=== PATIENT | female | born 1940 | race Caucasian/White ===

== ENCOUNTER → 2019-02-26 | Outpatient (CLI) | payer MEDICARE, BC ==
[~2019-02-26] MED LIST: AMLO5 PO; ASPI81CH PO; Boniva150 MG PO; DIPYRIDAMOLE PO; HYDCHL12.5 PO; ISOMON20 PO; LETR2.5 PO; LISI20 PO; MELO7.5 PO; METF500 PO
== END ==
LOC: LAB SHORT 10:00 → LAB 10:00
DX: R30.0 Dysuria (principal)
CPT/HCPCS: 87077; 87086; 87186

== ENCOUNTER → 2020-12-10 | Outpatient (CLI) | payer MEDICARE | END | disposition home or self-care (01) | LOC: LAB SHORT 15:15 → LAB 15:15 | DX: R35.0 Frequency of micturition (principal) | CPT/HCPCS: 87086 ==

== ENCOUNTER → 2021-01-01 | Outpatient (CLI) | payer MEDICARE | END | disposition home or self-care (01) | LOC: LAB 11:10 → LAB SHORT 11:10 | DX: R30.0 Dysuria (principal) | CPT/HCPCS: 87086 ==

== ENCOUNTER → 2021-04-21 | Outpatient (CLI) | payer MEDICARE ==
[2021-04-21 11:09] LABS: BASOPHILS ABSOLUTE AUTO 0.08 K/mm3 (0.00-0.23); BASOPHILS PERCENT AUTO 1 % (0-2); EOSINOPHILS ABSOLUTE AUTO 0.19 K/mm3 (0.00-0.68); EOSINOPHILS PERCENT AUTO 3 % (0-6); Hematocrit 38.9 % (33.0-51.0); Hemoglobin 12.7 g/dL (11.5-16.0); IMMATURE GRAN ABSOLUTE AUTO 0.04 K/mm3 (0.00-0.10); IMMATURE GRAN PERCENT AUTO 1 % (0-1); LYMPHOCYTES ABSOLUTE AUTO 1.14 K/mm3 (0.84-5.20); LYMPHOCYTES PERCENT AUTO 19 % (21-46); MONOCYTES ABSOLUTE AUTO 0.71 K/mm3 (0.16-1.47); MONOCYTES PERCENT AUTO 12 % (4-13); Mean Corpuscular HGB 31.9 pg (26.0-34.0); Mean Corpuscular HGB Conc 32.6 g/dL (31.5-36.5); Mean Corpuscular Volume 98 fL (80-100); Mean Platelet Volume 9.6 fL (9.1-12.4); NEUTROPHILS PERCENT AUTO 64 % (41-73); Platelet Count 340 K/mm3 (150-400); RDW Coefficient Variation 12.5 % (11.7-14.2); Red Blood Cell Count 3.98 M/mm3 (3.80-5.20); White Blood Cell Count 6.06 K/mm3 (4.00-11.30)
[2021-04-21 11:33] LABS: Alanine Aminotransfer (ALT/SGP 10 U/L (12-78); Albumin, Blood 3.5 g/dL (3.4-5.0); Alk Phos 74 U/L (50-136); Anion Gap 6 mmol/L (6-16); Aspartate Aminotrans (AST/SGOT 21 U/L (12-37); Bilirubin, Total 0.4 mg/dL (0.1-1.0); Blood Urea Nitrogen 20 mg/dL (8-24); Bun/Creatinine Ratio 33.3 (12.0-20.0); CO2, Blood 29 mmol/L (21-32); Calcium, Blood 9.9 mg/dL (8.5-10.1); Chloride, Blood 104 mmol/L (98-108); Globulin, Blood 3.5 g/dL (2.2-4.0); Glomerular Filtration Rate >60 (60-); Glucose, Blood 101 mg/dL (70-99); Potassium, Blood 3.6 mmol/L (3.5-5.5); Sodium, Blood 139 mmol/L (136-145); Thyroid Stimulating Hormone 0.885 uIU/mL (0.360-4.800)
== END | disposition home or self-care (01) ==
LOC: LAB 10:36 → LAB SHORT 10:36
PROVIDERS: Physician Assistant
DX: R53.83 Other fatigue (principal)
CPT/HCPCS: 80053; 84443; 85025

== ENCOUNTER 2021-05-14 13:43 | Inpatient (IN) | payer MEDICARE, BC ==
[~2021-05-14] VITALS: Ht 157.5 cm; Wt 72.6 kg
[2021-05-14] MEDS ORDERED: CARBLEV25 PO (13:59)
[2021-05-14] MEDS ORDERED: CARBIDOPA PO (14:00)
[2021-05-14] MEDS ORDERED: LISI20 PO (14:00)
[2021-05-14] MEDS ORDERED: LETR2.5 PO (14:00)
[2021-05-14] MEDS ORDERED: LEVODOPA PO (14:00)
[2021-05-14] MEDS ORDERED: HYDCHL25 PO (14:01)
[2021-05-14] MEDS ORDERED: AMLO5 PO (14:01)
[2021-05-14] MEDS ORDERED: METF500 PO (14:01)
[2021-05-14] MEDS ORDERED: Isosorbide Mono30 MG PO (14:02)
[2021-05-14] MEDS ORDERED: GABA300 PO (14:02)
[2021-05-14 14:14] LABS: BASOPHILS ABSOLUTE AUTO 0.04 K/mm3 (0.00-0.23); BASOPHILS PERCENT AUTO 0 % (0-2); EOSINOPHILS ABSOLUTE AUTO 0.01 K/mm3 (0.00-0.68); EOSINOPHILS PERCENT AUTO 0 % (0-6); Hematocrit 34.4 % (33.0-51.0); Hemoglobin 11.9 g/dL (11.5-16.0); IMMATURE GRAN PERCENT AUTO 1 % (0-1); LYMPHOCYTES ABSOLUTE AUTO 1.03 K/mm3 (0.84-5.20); LYMPHOCYTES PERCENT AUTO 6 % (21-46); MONOCYTES ABSOLUTE AUTO 1.52 K/mm3 (0.16-1.47); MONOCYTES PERCENT AUTO 9 % (4-13); Mean Corpuscular HGB 32.2 pg (26.0-34.0); Mean Corpuscular HGB Conc 34.6 g/dL (31.5-36.5); Mean Corpuscular Volume 93 fL (80-100); Mean Platelet Volume 9.8 fL (9.1-12.4); NEUTROPHILS ABSOLUTE AUTO 14.29 K/mm3 (1.96-9.15); NEUTROPHILS PERCENT AUTO 84 % (41-73); Platelet Count 308 K/mm3 (150-400); RDW Coefficient Variation 12.3 % (11.7-14.2); RDW Standard Deviation 42.7 fL (35.1-46.3); White Blood Cell Count 16.99 K/mm3 (4.00-11.30)
[2021-05-14 14:45] LABS: Albumin, Blood 2.6 g/dL (3.4-5.0); Albumin/Globulin Ratio 0.9 (0.8-1.8); Bilirubin, Total 0.6 mg/dL (0.1-1.0); Bun/Creatinine Ratio 15.7 (12.0-20.0); Calcium, Blood 8.9 mg/dL (8.5-10.1); Creatinine, Blood 3.43 mg/dL (0.40-1.00); Globulin, Blood 2.9 g/dL (2.2-4.0); Potassium, Blood 3.2 mmol/L (3.5-5.5); Total Protein, Blood 5.5 g/dL (6.4-8.2)
[2021-05-14 15:53] LABS: Source, Urine Catheter
[2021-05-14 15:56] LABS: Appearance, Urine Clear (Clear); Bilirubin, Urine Neg (Neg); Blood, Urine 5+ (Neg); Color, Urine Yellow (P-Yellow); Glucose Qualitative, Urine Neg (Neg); Ketones, Urine 1+ (Neg); Leukocyte Esterase, Urine Neg (Neg); Nitrite, Urine Neg (Neg); Protein, Urine 3+ (Neg); Urobilinogen, Urine NORM (Normal)
[2021-05-14 15:58] LABS: Amorphous Mod (0-Heavy); Bacteria Few /hpf; Squamous Epithelial Cells Few /hpf (Few); White Blood Cells, Urine 0-2 /hpf (0-5)
[2021-05-14 17:55] LABS: Magnesium, Blood 1.7 mg/dL (1.6-2.4)
[2021-05-14 17:56] LABS: Phosphorus, Blood 4.4 mg/dL (2.5-4.9)
[2021-05-15 04:59] LABS: BASOPHILS ABSOLUTE AUTO 0.05 K/mm3 (0.00-0.23); BASOPHILS PERCENT AUTO 0 % (0-2); EOSINOPHILS PERCENT AUTO 1 % (0-6); Hematocrit 31.8 % (33.0-51.0); Hemoglobin 10.6 g/dL (11.5-16.0); IMMATURE GRAN ABSOLUTE AUTO 0.08 K/mm3 (0.00-0.10); IMMATURE GRAN PERCENT AUTO 1 % (0-1); LYMPHOCYTES ABSOLUTE AUTO 0.86 K/mm3 (0.84-5.20); LYMPHOCYTES PERCENT AUTO 8 % (21-46); MONOCYTES ABSOLUTE AUTO 1.21 K/mm3 (0.16-1.47); MONOCYTES PERCENT AUTO 11 % (4-13); Mean Corpuscular HGB 32.1 pg (26.0-34.0); Mean Corpuscular HGB Conc 33.3 g/dL (31.5-36.5); Mean Corpuscular Volume 96 fL (80-100); NEUTROPHILS ABSOLUTE AUTO 9.14 K/mm3 (1.96-9.15); NEUTROPHILS PERCENT AUTO 80 % (41-73); Platelet Count 257 K/mm3 (150-400); RDW Coefficient Variation 12.4 % (11.7-14.2); RDW Standard Deviation 43.7 fL (35.1-46.3); White Blood Cell Count 11.44 K/mm3 (4.00-11.30)
[2021-05-15 05:53] LABS: Albumin, Blood 2.1 g/dL (3.4-5.0); Anion Gap 11 mmol/L (6-16); Blood Urea Nitrogen 50 mg/dL (8-24); Bun/Creatinine Ratio 20.3 (12.0-20.0); CO2, Blood 23 mmol/L (21-32); Calcium, Blood 8.5 mg/dL (8.5-10.1); Chloride, Blood 103 mmol/L (98-108); Creatinine, Blood 2.46 mg/dL (0.40-1.00); Glomerular Filtration Rate 19 (60-); Glucose, Blood 86 mg/dL (70-99); Magnesium, Blood 1.4 mg/dL (1.6-2.4); Phosphorus, Blood 3.8 mg/dL (2.5-4.9); Potassium, Blood 3.8 mmol/L (3.5-5.5); Sodium, Blood 137 mmol/L (136-145)
[2021-05-15 06:01] LABS: CPK Creatine Kinase 2171 U/L (26-193)
[2021-05-15] MEDS ORDERED: GABA300 PO (07:27)
[2021-05-15] MEDS ORDERED: Ocuvite Preser1 EACH PO (07:37)
--- NOTE | 2021-05-15 17:59 | NUR ---
SHIFT SUMMARY PATIENT AOX2/3 FORGETFULL; ADMITTED WITH FALL AND PARRISH; IVF INFUSING AT 150CC/HR. PATIENT UP WITH ONE ASSIST AND GAIT BELT TO BR. PT/OT WORKED WITH PATIENT, CARPENTER MINE INVOLVED IN PLAN FOR SNF WHEN MEDICALLY STABLE. SKIN DRESSINGS TO BUTTOCKS AND HEELS INTACT. VSS; WILL CONTINUE WITH PLAN OF CARE
[2021-05-16 04:20] LABS: Hematocrit 29.3 % (33.0-51.0); Hemoglobin 10.1 g/dL (11.5-16.0); Mean Corpuscular HGB 32.2 pg (26.0-34.0); Mean Corpuscular HGB Conc 34.5 g/dL (31.5-36.5); Mean Corpuscular Volume 93 fL (80-100); Mean Platelet Volume 9.9 fL (9.1-12.4); Platelet Count 258 K/mm3 (150-400); RDW Coefficient Variation 12.2 % (11.7-14.2); RDW Standard Deviation 41.4 fL (35.1-46.3); Red Blood Cell Count 3.14 M/mm3 (3.80-5.20)
[2021-05-16 05:05] LABS: Magnesium, Blood 1.5 mg/dL (1.6-2.4); Thyroid Stimulating Hormone 0.816 uIU/mL (0.360-4.800)
[2021-05-16 05:06] LABS: Albumin, Blood 2.2 g/dL (3.4-5.0); Albumin/Globulin Ratio 0.8 (0.8-1.8); Bilirubin, Total 0.5 mg/dL (0.1-1.0); Bun/Creatinine Ratio 32.5 (12.0-20.0); Calcium, Blood 8.5 mg/dL (8.5-10.1); Creatinine, Blood 0.96 mg/dL (0.40-1.00); Globulin, Blood 2.6 g/dL (2.2-4.0); Percent Saturation 11.2 % (15.0-50.0); Potassium, Blood 3.3 mmol/L (3.5-5.5); Total Protein, Blood 4.8 g/dL (6.4-8.2)
--- NOTE | 2021-05-16 07:10 | NUR ---
SHIFT SUMMARY Pt A/Ox3-4 with times of confusion. VSS over night. Pt incontinent of urine multiple times overnight in brief. Q2 turns. 0.9 infused over night per order.
--- NOTE | 2021-05-16 11:21 | NUR ---
PT. STRONGLY REFUSED CHECKING CBG, TRYING TO HIT & HIDING BOTH HANDS, PRIMARY RN NOTIFIED.
--- NOTE | 2021-05-16 13:14 | NUR ---
SHIFT SUMMARY PATIENT INCREASINGLY BECOMING MORE CONFUSED ON SHIFT. PATIENT STATING SHE FEELS IMPRISIONED AND THE STAFF IS HERE TO HARM HER. PATIENT SWINGING HER ARMS AT STAFF WHEN ATTEMPTING TO HELP GET OOB IN AM. PATIENT PULLED OUT IV. NEW IV PLACED.
--- NOTE | 2021-05-16 16:34 | NUR ---
PT. REFUSED CBG CHECK & SAID " NO' MY BLOOD SUGAR IS NORMAL".
--- NOTE | 2021-05-16 17:14 | NUR ---
ON SOFT WRIST RESTRAINT PER MD ORDER RELATED TO UNCOOPERATIVE WITH CARE, UNSAFE FOR HERSELF & OTHERS PT. HIT STAFF MEMBERS & TRIED TO BITE AT TIMES.
--- NOTE | 2021-05-16 18:36 | NUR ---
DAY SHIFT SUMMARY/TRANSFERED FROM SURGICAL UNIT PT ARRIVED TO FLOOR A TRANSFER FROM THE SURGICAL UNIT. AGITATED AND IN WRIST RESTRAINTS. PT PULLING AGAINST RESTRAINTS, YELLING AT PEOPLE SHE PASSES IN HALLWAY ON THE WAY TO ROOM TO CALL POLICE SHE IS BEING HELD AGAINST HER WILL. 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 PT CONTINUES TO YELL OUT ROOM DOOR FOR HELP AND THREATENS STAFF WITH CALLING POLICE AND PRESSING CHARGES FOR KEEPING HER HERE TONIGHT. ASSESSMENT OF WRIST AND SKIN BENEATH RESTRAINTS. HX OF FALLS, IV PATENT, MEPILEX PLACED TO SACRAL AREA WITH REDNESS AND EXCORIATION/OPEN BLISTERS PRESENT, MEPILEX TO HEALS BLE. PT EDUCATED [employer] DEAN LIGHT AND CALL LIGHT IS IN REACH OF PT.
--- NOTE | 2021-05-17 01:06 | NUR ---
PT HAS A LOW GRADE FEVER BUT REFUSES PO MEDS AT THE MOMENT AND THIS NURSE WILL CONTINUE TO MONITOR. PT STILL AGITATED AND ATTEMPTING TO PICK AT RESTRAINTS AND IV.
--- NOTE | 2021-05-17 05:38 | NUR ---
SHIFT SUMMARY PT. AOX1 AND WAS AGITATED WHILE YELLING OUT DELUSIONAL STATEMENTS MOST OF THIS SHIFT. PT WAS CALM AFTER PRN PER EMAR AT THE BEGINING OF THIS SHIFT AND WAS ABLE TO TRUST PO MEDS PER EMAR. PT. SHORTLY AFTER BEGAIN TO ACCUSE STAFF OF TRYING TO POISON THEM AGAIN SPITTING OUT WATER. PT. DISORIENTED AND WAS FINALLY ABLE TO REST BRIEFLY WITHOUT PULLING ON RESTRAINTS. PT. CLEAN AND DRY IN BED YELLING OUT. THIS NURSE WILL CONTINUE TO MONITOR UNTIL REPORT IS GIVEN.
[2021-05-17 05:59] LABS: Hematocrit 35.1 % (33.0-51.0); Mean Corpuscular HGB 31.7 pg (26.0-34.0); Mean Corpuscular HGB Conc 34.2 g/dL (31.5-36.5); Mean Corpuscular Volume 93 fL (80-100); Mean Platelet Volume 10.5 fL (9.1-12.4); Platelet Count 353 K/mm3 (150-400); RDW Coefficient Variation 12.1 % (11.7-14.2); RDW Standard Deviation 41.1 fL (35.1-46.3); Red Blood Cell Count 3.79 M/mm3 (3.80-5.20); White Blood Cell Count 11.91 K/mm3 (4.00-11.30)
[2021-05-17 07:33] LABS: Anion Gap 16 mmol/L (6-16); Blood Urea Nitrogen 13 mg/dL (8-24); CO2, Blood 22 mmol/L (21-32); Calcium, Blood 9.2 mg/dL (8.5-10.1); Chloride, Blood 101 mmol/L (98-108); Creatinine, Blood 0.59 mg/dL (0.40-1.00); Glomerular Filtration Rate >60 (60-); Glucose, Blood 95 mg/dL (70-99); Potassium, Blood 3.1 mmol/L (3.5-5.5); Sodium, Blood 139 mmol/L (136-145)
--- NOTE | 2021-05-17 17:56 | NUR ---
Shift Summary A/Ox3, intermittent confusion and forgetfulness. Can easily get agitated; however, has been appropriate and even pleasant with staff today. Worked with PT/OT. Medicated x 1 for 8/10 bilat feet pain r/t neuropathy, effect was good. Daughter Venessa is concerned with discharge disposition to SNF and feels this will only increase agitation 10 fold. Venessa would prefer patient d/c to home with HH. Phone number and concern passed onto JEWEL Garcia and Edilia. During assessment, patient found to have decubitis to coccyx and excoriated buttocks. Photos taken and placed in chart. Wound care documentation completed. Wound cleansed and dressed.
--- NOTE | 2021-05-18 05:49 | NUR ---
SHIFT SUMMARY ASSUMED CARE AT 1900. PT REMAINS CONFUSED WITH LABILE MOOD. FREQUENTLY AGITATED AMD COMBATIVE MEDICATED PER EMAR FOR THIS ONCE DURING SHIFT THUS FAR. RESTRAINTS WERE DISCONTINUED DURING PREVIOUS SHIFT AND DOES NOT APPEAR TO NEED THEM; OFTEN RESISTING REPOSITIONING/TURNING. MEPILEX TO COCCYX REMAINS IN PLACE, CLEAN DRY AND INTACT. BED ALRAM REMAINS ACTIVATED- PT OCCASIONALLY TRIES TO GET OUT OF BED, POOR INSIGHT REGARDING HER LIMITATIONS. BED IN LOW POSITIONS WITH THE CALL LIGHT WITHIN EASY REACH. PT DOES USE CALL LIGHT TO SUMMON ASSISTANCE. WILL CONTINUE TO MONITOR AND REPOSITION Q2H PT ALLOWS.
[2021-05-18 06:10] LABS: Albumin, Blood 2.4 g/dL (3.4-5.0); Anion Gap 10 mmol/L (6-16); Blood Urea Nitrogen 18 mg/dL (8-24); Bun/Creatinine Ratio 25.2 (12.0-20.0); CO2, Blood 26 mmol/L (21-32); Chloride, Blood 102 mmol/L (98-108); Creatinine, Blood 0.71 mg/dL (0.40-1.00); Glomerular Filtration Rate >60 (60-); Glucose, Blood 96 mg/dL (70-99); Phosphorus, Blood 2.3 mg/dL (2.5-4.9); Potassium, Blood 3.2 mmol/L (3.5-5.5); Sodium, Blood 138 mmol/L (136-145)
--- NOTE | 2021-05-18 17:38 | NUR ---
SHIFT SUMMARY: CONFUSED, NOT COMBATIVE THIS SHIFT. NO RESTRAINTS IN USE. WHILE PT'S MENTATION WAXED AND WANED THROUGHOUT THE DAY, SHE BECAME SURLY AND SULLEN THIS EVENING AFTER HER DAUGHTER AND GRANDDAUGHTER VISITED; SHE THOUGHT THEY WERE TAKING HER HOME AND WAS VERY DISAPPOINTED WHEN THEY LEFT WITHOUT HER. INCONTINENT OF BOWEL AND BLADDER, ALTHOUGH SHE DENIED THIS. PT/OT WORKED WITH HER TODAY; SHE WAS A MAX TWO PERSON ASSIST TO GET FROM BSC TO BED. REFUSED SKIN ASSESSMENT AND DRESSING CHANGE ON COCCYX. GAVE TYLENOL ONCE FOR BACK PAIN WITH RELIEF. POTASSIUM AND PHOS REPLACED. APPETITE IS POOR.
--- NOTE | 2021-05-19 05:37 | NUR ---
SHIFT SUMMARY ASSUMED CARE AT 1900. PT REMAINS AAOX1-2, TO PERSON AND PLACE. PT KNOWS THAT SHE IS IN A HOSPITAL BUT BELIEVES THAT SHE IS STILL IN [place]. PT IS CONFUSED AND GET FRUSTRATED WHEN THERE ARE ATTEMPTS TO RE-DIRECTS AND RE-ORIENT. PT WITH LABILE MOOD AND GETS COMBATIVE. MEDICATED PRN PER EMAR. SCHEDULED MEDICATIONS WERE ADMINISTERED WITHOUT INCIDENT. PT WAS INCONTINENT DURING SHIFT AND ATTENDS IN PLACE. PT CONSTANTLY REFUSED REPOSITIONING AND TURNING DESPITE ENCOURAGEMENT AND TEACHING. BED ALARM REMAINS ACTIVATED AND BED IS IN LOW POSITION WITH THE CALL LIGHT WITHIN EASY REACH. WILL CONTINUE TO MONITOR.
[2021-05-19 05:45] LABS: Albumin, Blood 2.2 g/dL (3.4-5.0); Anion Gap 10 mmol/L (6-16); Blood Urea Nitrogen 16 mg/dL (8-24); Bun/Creatinine Ratio 25.4 (12.0-20.0); CO2, Blood 27 mmol/L (21-32); Calcium, Blood 8.9 mg/dL (8.5-10.1); Chloride, Blood 101 mmol/L (98-108); Creatinine, Blood 0.63 mg/dL (0.40-1.00); Glomerular Filtration Rate >60 (60-); Glucose, Blood 99 mg/dL (70-99); Phosphorus, Blood 3.5 mg/dL (2.5-4.9); Potassium, Blood 3.4 mmol/L (3.5-5.5); Sodium, Blood 138 mmol/L (136-145)
--- NOTE | 2021-05-19 18:35 | NUR ---
SHIFT SUMMARY PT RESTING QUIETLY AT START OF SHIFT. WOKE EASILY FOR CARE. INCONTINENT OF BLADDER; CLEANED AND CHANGED. DRSG TO COCCYX CHANGED WELL. PT REPOSITIONED FOR BREAKFAST. SOME CONFUSION AND DEMENTIA REPORTED AND NOTED. PT UP TO CHAIR AFTER BREAKFAST WITH P/T. PT REMAINED IN CHAIR AT BS UNTIL AFTER LUNCH AND THEN ASSISTED BACK INTO BED BY O/T. DR CASTRO IN TO SEE PT THIS AM, ATTEMPTED TO EDU PT ON PLAN OF CARE AND PROCESS. PT'S DAUGHTER IN TO VISIT THIS AFTERNOON. DAUGHTER BROUGHT IN POA PAPERS AND ASSISTED PT IN FILLING OUT POLST. PT AND DAUGHTER REQUESTED PT TO BE DNR. DR CASTRO NOTIFIED. PT SEEMED TO DO BETTER SINCE DAUGHTER CAME IN TO VISIT. REQUESTED BED [place] RECENTLY AND ABLE TO USE. REMAINED CONTINENT SINCE THIS AM. 1+ EDEMA TO BLE'S; ELEVATED IN BED. MEDICATED FOR C/O L HIP PAIN X2 THIS SHIFT. SITTING UP EATING DINNER AT THIS TIME. DENIES FURTHER NEEDS. BED ALARM ON FOR SAFETY. CALL LT IN REACH.
[2021-05-20 05:48] LABS: Albumin, Blood 2.3 g/dL (3.4-5.0); Anion Gap 12 mmol/L (6-16); Blood Urea Nitrogen 24 mg/dL (8-24); CO2, Blood 24 mmol/L (21-32); Calcium, Blood 9.5 mg/dL (8.5-10.1); Chloride, Blood 100 mmol/L (98-108); Creatinine, Blood 0.86 mg/dL (0.40-1.00); Glomerular Filtration Rate >60 (60-); Glucose, Blood 85 mg/dL (70-99); Phosphorus, Blood 3.1 mg/dL (2.5-4.9); Potassium, Blood 4.1 mmol/L (3.5-5.5); Sodium, Blood 136 mmol/L (136-145)
--- NOTE | 2021-05-20 05:52 | NUR ---
SHIFT SUMMARY ASSUMED CARE AT 1900. PT MENTATION WAXES AND WANES DURING THE SHIFT. PT MORE CONFUSED THIS MORNING BUT NOT COMBATIVE. PURPLE DNR BRACELET ON LEFT WRIST. IV SITE BENIGN. DRESSING TO COCCYX INTACT. NO COMPLAINTS OF PAIN DURING THE SHIFT. BP AT 0429 WAS RECORDED 190/70, WHEN RECHECKED AT 0457, BP WAS 162/82. PT ASYMPTOMATIC. PT REPOSITIOND/TURNED Q2H, PT MUCH MORE AGREEABLE WITH THIS COMPARED TO PREVIOUS SHIFTS. BED ALARM REMAINS ACTIVATED, BED IN LOW POSITION WITH THE CALL LIGHT WITHIN EASY REACH. WILL CONTINUE TO MONITOR.
--- NOTE | 2021-05-20 17:43 | NUR ---
ALERT TO SELF. UNLABORED RESPIRATIONS. COOPERATIVE. PER DAUGHTER PATIENT TO GO TO [place] POSSIBLY NEXT WEEK WITH PATIENT TALKING ABOUT GOING HOME. INCONTINENT/CONTINENT OF URINE. POOR APPETITE. WANTS TO WALK IN HALLWAY, BUT IS MAX 2 PERSON ASSIST JUST FROM BSC TO BED. BUTTOCK CLEANED AND CALAZINE AND ALOE COMBINATION PLACED. WCTM
--- NOTE | 2021-05-21 05:45 | NUR ---
SHIFT SUMMARY ASSUMED CARE AT 1900. PT CONFUSED. OCCASIONALLY AGITATED AND FRUSTRATED. TURNED/REPOSITIONED DURING SHIFT WHEN SHE WOULD ALLOW. NO COMPLAINTS OF PAIN VOICED. PT INCONTINENT. BED ALARM REMAINS ACTIVATED. BED IS IN LOW POSITION WITH THE CALL LIGHT WITHIN EASY REACH. WILL CONTINUE TO MONITOR.
--- NOTE | 2021-05-21 10:45 | NUR ---
COMBINATION CREAM OF ALOE AND CALAZINE APPLIED AFTER CLEANING BUTTOCK AREA. HIPS FLOATED.
--- NOTE | 2021-05-21 16:04 | NUR ---
ALERT TO SELF. SLEEPING MOST OF SHIFT. ALOE AND CALAZINE MIXTURE APPLIED TO BUTTOCK AFTER EACH URINATION. COOPERATIVE MOST OF THE TIME. REDIRECTABLE. AWAITING PLACEMENT TO [place]. UNLABORED RESPIRATIONS. WCTM
--- NOTE | 2021-05-21 20:40 | NUR ---
PT SATURATED W/URINE, ATTENDS CHANGED AND CALAZIME + ALOE CREAMS APPLIED TO COCCYX/MAGALYS AREA. SKIN IS EXCORIATED AND RED W/SBD OBSERVED AND CENTER OF WOUND NOTED TO BE LANDRUM TINGED. PLAN FOR TURN SCHEDULE AND FREQ ATTENDS CHECKS.
--- NOTE | 2021-05-21 21:28 | NUR ---
DRILL HAND ALERTED RN OF VITALS OUTSIDE NORMAL RANGE AND MADE AWARE: BP 167/73, TEMP 102.5, HR 102, RR 22 AND SPO2 93% ON RA. PT WAS VERY AGGITATED AND RESTLESS AT THE TIME. SHE WAS VERY CONFUSED W/NONSENSICAL CONVERSATION AND HAVING DIFFICULTY REDIRECTING. SHE MADE SEVERAL ATTEMPTS OOB BY SELF. BLANKETS WERE REMOVED AND MD ALERTED TO SITUATION. SHE INSTRUCTED TO GIVE THE RX'D PRN IM ZYPREXA AND PO TYLENOL IF PT IS COMPLIANT. ZYPREXA WAS ADMINISTERED BY PLAYGROUND AIDE (JANI HAMILTON), AWAITING EFFECT. PLAN TO GIVE TYLENOL ONCE PT CALMS FURTHER OR WILL OBTAIN LA TYLENOL RX IF NEEDED.
--- NOTE | 2021-05-21 22:35 | NUR ---
TEMP REMAINS SLIGHTLY ELEVATED, NOW 100.8. TYLENOL RECIEVED PO PRN AND PT TOLERATED PILLS W/O DISTRESS. SHE'S MUCH CALMER AND RESTING QUIETLY W/BED ALARM IN PLACE. TURN SCHEDULE BEING MAINTAINED.
--- NOTE | 2021-05-22 06:25 | NUR ---
SUMMARY: PT A/O TO SELF BUT MENTATION IS VARIABLE. AT HS SHE BECAME MORE CONFUSED, AGGITATED, NONSENSICAL AND REQUIRED IM ZYPREXA PRN TO AID IN CALMING HER. THIS MORNING SHE SEEMS MUCH CLEARER AND WAS ABLE TO SPECIFY NEEDS AND PROVIDE SOME DETAILS RE: HER PERSONAL HISTORY, FAMILY AND CAREER. SHE DOESN'T SEEM TO KNOW CAUSE OF DECUB ULCERS TO COCCYX BUT ADMITS SHE "HASN'T BEEN ABLE TO WALK FOR AWHILE". PT WAS INCONTINENT T/O NOCTE W/ATTENDS AND LINEN CHANGED FOR SATURATION W/URINE. CALAZIME + ALOE CREAM APPLIED TO COCCYZ AND MAGALYS AREA. SEE PREVIOUS NOTE FOR DETAILS ON WOUND APPEARANCE. TURN SCHEDULE MAINTAINED AND PILLOWS PLACED TO EXT'S FOR FURTHER SBD PREVENTION. VS WERE ELEVATED AT START OF SHIFT BUT PT WAS VERY ANXIOUS AND CONFUSED AT THAT TIME. THEY IMPROVED AFTER RECIEVING ZYPREXA AND TYLENOL FOR TMAX 102. NO ACUTE CHANGES, VSS/AFEBRILE THIS AM. WOUND CLINIC NEEDS CONSULTED TODAY PER ORDERS, WILL ENSURE DAY STAFF ARE AWARE. PLACEMENT PENDING. ANGELA AND REPORT TO DAY RN.
--- NOTE | 2021-05-22 08:23 | NUR ---
pt sleeping, but wakes easily, states she isn't doing very well, is trying to sleep, confused, but tries to follow commands, lungs are clear, dim in bases, resp even and unlabored, no cough noted, hrr, trace edema noted to b/l le, ppp+2, cap refill <3sec, vs stable, afebrile, iv to rfa site is clear and patent, s.l. btx4, abd flat soft nontender, incont of urine and stool, but will use the bedpan at times, bottom and ayaan area are red, turn q2hr, maew, weak, call light in reach.
--- NOTE | 2021-05-22 18:05 | NUR ---
pt has been calm today, just asking about what to expect next. daughter was in to see her. no acute changes this shift. call light in reach.
--- NOTE | 2021-05-23 03:50 | NUR ---
80 year old Female with Parkinsons PARRISH, & sacral coccyx dcub & buttocks maceration has mod amt purulent drainage fever low grade. Photo from 05/17/21 shows pressure ulcer. Oders obtained to photodoc & wound care. Deep wound culture. Will obtain new photos & DEEP WOUND CULTURES. Pt says she is psychol. & that she needs to complete interviews. zyprexa 10 mg given at HS with helpful effect. Poor historian, unable to ambulate despite 2-3 max assist. Appetite poor medicated for nausea x 1 , 1 sm emisis
[2021-05-23 10:19] LABS: Hematocrit 32.4 % (33.0-51.0); Hemoglobin 11.1 g/dL (11.5-16.0); Mean Corpuscular HGB 32.3 pg (26.0-34.0); Mean Corpuscular HGB Conc 34.3 g/dL (31.5-36.5); Mean Corpuscular Volume 94 fL (80-100); Mean Platelet Volume 9.7 fL (9.1-12.4); Platelet Count 366 K/mm3 (150-400); RDW Standard Deviation 41.5 fL (35.1-46.3); Red Blood Cell Count 3.44 M/mm3 (3.80-5.20); White Blood Cell Count 23.23 K/mm3 (4.00-11.30)
[2021-05-23 11:08] LABS: Anion Gap 12 mmol/L (6-16); Blood Urea Nitrogen 15 mg/dL (8-24); Bun/Creatinine Ratio 23.7 (12.0-20.0); CO2, Blood 23 mmol/L (21-32); Calcium, Blood 9.1 mg/dL (8.5-10.1); Chloride, Blood 94 mmol/L (98-108); Creatinine, Blood 0.63 mg/dL (0.40-1.00); Glomerular Filtration Rate >60 (60-); Glucose, Blood 117 mg/dL (70-99); Potassium, Blood 4.4 mmol/L (3.5-5.5); Sodium, Blood 129 mmol/L (136-145)
--- NOTE | 2021-05-23 15:54 | NUR ---
CALLED DR CASTRO 1000, NOTIFIED OF FOUL SMELLING EXUDATE FROM SACRAL WOUND, FEVER. ORDRE FOR CBC AND LATER ABX STARTED. SENT WOULD CX LAST NIGHT. ALSO PUT IN ORDER FOR SG CONSULT TO [facility] AND GERARDO MCRAE
--- NOTE | 2021-05-23 15:55 | NUR ---
CALLED DR CASTRO, NOTIFIED OF LOW BP AND ELEVATED TEMP
[2021-05-23 16:57] LABS: Source, Urine Catheter
[2021-05-23 17:02] LABS: Appearance, Urine Cloudy (Clear); Bilirubin, Urine Neg (Neg); Blood, Urine 4+ (Neg); Color, Urine Yellow (P-Yellow); Glucose Qualitative, Urine Neg (Neg); Ketones, Urine Neg (Neg); Leukocyte Esterase, Urine 3+ (Neg); Nitrite, Urine Neg (Neg); Protein, Urine 3+ (Neg); Specific Gravity, Urine 1.015 (1.003-1.022); Urobilinogen, Urine NORM (Normal)
[2021-05-23 17:11] LABS: Amorphous Heavy (0-Heavy); Bacteria Many /hpf; Red Blood Cells, Urine 25-50 /hpf (0-2); Squamous Epithelial Cells Few /hpf (Few)
[2021-05-23 17:51] LABS: Influenza A, PCR NEGATIVE (NEGATIVE); Influenza B, PCR NEGATIVE (NEGATIVE); Resp Syncytial Virus, PCR NEGATIVE (NEGATIVE); SARS-Cov-2 (COVID-19) PCR, MMC NEGATIVE (NEGATIVE)
--- NOTE | 2021-05-23 18:49 | NUR ---
SUMMARY- PT CONFUSED, DEPENCANT IN CARE. HAD BEEN INCONT B&B ALL DAY, SATURATING DEPENDS. ORDER FOR GRIFFITHS TO PROTECTION OF FURTHER SKIN BREAKDOWN. DR DEWITT CAME BY AND VISUALIZED WOUND. PLAN FOR SURGERY TOMORROW, NPO AFTER MN. STARTED LR AT 100ML/HR. TRAMADOL FOR PAIN WITH ADQ RELEIF UNLESS CHANGING POSITION, THAN PAIN IS SEVERE IN SACRAL AREA. PT TOLERATING FLUIDS, BUT HAS REFUSED MOST SOLID FOODS. STARTED BOWEL CARE WITH MIRILAX THIS AM, LAST BM 05/17 BUT PT HAS HAD MIN PO INTAKE. WILL REPORT TO FORREST COOLEY.
--- NOTE | 2021-05-23 19:29 | NUR ---
SPOKE WITH DAUGHTER JHONY, STATES PT HAD BEEN INDEPENDANT WITH MEDS AND COOKING UNTIL PAST MONTH. STATES MOM STARTED NEEDING MORE HELP. PT WAS FOUND FALLEN AT HOME ON FLOOR AND THATS WHEN DAUGHTER NOTICED PT HAD A BLISTER ON BOTTOM. (2 FRIDAYS AGO). THAN THAT SATURDAY HAD 3 LG BLISTERS TO COCCYS/SACRAL AREA. HADN'T REALIZED HER MOM HAD BREAKDOWN ON BOTTOM UNTIL THIS TIME. EXPLAINED THAT DAMAGE TO TISSUE DOESN'T SHOW UP UNTIL LATER AND HAS DEVELOPED INTO A UNSTAGABLE DECUBITUS REQUIRING INCISION AND DRAINAGE. DR DEWITT VISUALIZED WOUND AND PLANS TO PERRORM PROCEDURE IS FAMILY IS IN AGREEMENT.
--- NOTE | 2021-05-24 13:04 | NUR ---
tHE PATIENT WAS BROUGHT TO dAY SURGERY FOR HER PROCEDURE.THE PATIENT WAS IN PAIN.
--- NOTE | 2021-05-24 14:13 | NUR ---
05/24/21 1413 Raghavendra Ferrer PATIENT SCHEDULED ANTIBIOTICS, PATIENT ARRIVED TO OR WITH GRIFFITHS CATH IN PLACE DRAINING DARK YELLOW PURULENT URINE
--- NOTE | 2021-05-24 18:48 | NUR ---
1300- PT TAKEN TO PRESG VIA STRETCHER WITH LR AND VANCO INFUSING. BLOOD SUGAR 98, EKG PERFORMED. GRIFFITHS IN PLACE. DAUGHTER AWARE PT PRESG AND WILL MEET ANASTNGOZI TO GIVE CONCENT. ALREADY CONSENTED WITH DR DEWITT.
--- NOTE | 2021-05-24 18:51 | NUR ---
1545 PT RETURNED FROM PACU, OPENS EYES TO VERBAL, STATES " I CAN'T FEEL ANYTHING". DENIES ANY PAIN. MOVES ALL EXT TO COMMAND. VSS, CALLED DR HEARD FOR PAIN AND ANTIEMETIC ORDERS, STATES TO HOLD IVF FOR NOW. ORDERING BLOOD CX AND ECHO SHE HEARD A BRUIT.
--- NOTE | 2021-05-24 18:52 | NUR ---
SUMMARY- PT ALERT TO SELF. HAD I&D OF [facility] DECUB WITH DR DEWITT TODAY. WOUND VAC PLACED. TO CONT SUCTION, DRAINING SM AMOUNT SEROSANG. PT WOKE UP AND WAS IN SEVERE PAIN. AND NAUSEA, MEDICATED WITH FENT AND ZOFRAN. DR HEARD AWARE OF FINE CX IN BASES OF LUNG AND SHE HEARD A HEART MURMUR. ORDERED ECHO AND BLOOD CX. HOLDING IVF. GRIFFITHS PATENT DRAINING CLEAR WITH SEDIMENT. DAUGHTER AT BEDSIDE FOR A SHORT TIME POST OP AND GOING HOME FOR THE WILFREDO. VSS, WILL CONT TO JULISA. TOLERATING SIPS OF CLEARS AND A FEW BITES OF JELLO AND ICE. NAPPING ON/OFF. EMOTIONAL AND COMPLAINS ALOT WHILE AWAKE, ABOUT FEELING HOT AND PRESURE IN LEGS FROM SCD'S. WILL REPORT TO FORREST COOLEY.
[2021-05-25 04:53] LABS: BASOPHILS ABSOLUTE AUTO 0.05 K/mm3 (0.00-0.23); BASOPHILS PERCENT AUTO 0 % (0-2); EOSINOPHILS PERCENT AUTO 0 % (0-6); Hemoglobin 9.6 g/dL (11.5-16.0); IMMATURE GRAN ABSOLUTE AUTO 0.36 K/mm3 (0.00-0.10); IMMATURE GRAN PERCENT AUTO 2 % (0-1); LYMPHOCYTES ABSOLUTE AUTO 0.25 K/mm3 (0.84-5.20); LYMPHOCYTES PERCENT AUTO 1 % (21-46); MONOCYTES ABSOLUTE AUTO 0.47 K/mm3 (0.16-1.47); MONOCYTES PERCENT AUTO 2 % (4-13); Mean Corpuscular HGB 31.7 pg (26.0-34.0); Mean Corpuscular HGB Conc 33.1 g/dL (31.5-36.5); Mean Corpuscular Volume 96 fL (80-100); Mean Platelet Volume 9.8 fL (9.1-12.4); NEUTROPHILS ABSOLUTE AUTO 22.67 K/mm3 (1.96-9.15); NEUTROPHILS PERCENT AUTO 95 % (41-73); Platelet Count 363 K/mm3 (150-400); RDW Coefficient Variation 12.4 % (11.7-14.2); RDW Standard Deviation 43.7 fL (35.1-46.3); Red Blood Cell Count 3.03 M/mm3 (3.80-5.20)
--- NOTE | 2021-05-25 06:16 | NUR ---
PT imroving appetite urine out via barajas clear light now & no fevers. Had sacral coccyx dcub debrided with day RN report of large amt of purulence encountered & removed on OR. Wound vac placed & draining sm amount sang drainage. turned q 2 hours, repositioned. Medicated for pain with ultram & hydrocodone with helpful effect.
[2021-05-25 06:25] LABS: Anion Gap 11 mmol/L (6-16); Blood Urea Nitrogen 20 mg/dL (8-24); Bun/Creatinine Ratio 35.7 (12.0-20.0); CO2, Blood 22 mmol/L (21-32); Chloride, Blood 99 mmol/L (98-108); Creatinine, Blood 0.56 mg/dL (0.40-1.00); Glomerular Filtration Rate >60 (60-); Glucose, Blood 249 mg/dL (70-99); Potassium, Blood 4.6 mmol/L (3.5-5.5); Sodium, Blood 132 mmol/L (136-145)
--- NOTE | 2021-05-25 10:49 | NUR ---
Echocardiogram completed.
--- NOTE | 2021-05-25 18:29 | NUR ---
SHIFT SUMMARY TEARFUL AT TIMES. WAS UP IN CHAIR FOR LUNCH AND TOLERATED WELL. DID REPORT SORENESS TO COCCYX AREA WHILE IN CHAIR. WOUND VAC FUNCTIONING PROPERLY WITH SEROSANGUINESS DISCHARGE. VERY BRIGHT AND CLEAR THIS MORNING. DID START TO REPORT CONCERN ABOUT CONTACTING A WORK CONTACT. CALLED PERSON FOR PT AND GAVE HER THE PTS PHONE NUMBER. PT REPORTED FEELING BETTER AFTER RESOLVING ISSUE. DOES APPEAR TO BE MORE DISORIENTED THIS EVENING AND EMOTIONAL. DID STATE SHE IS HUNGRY FOR SUPPER. APPETITE POOR RECENTLY. NO BM TODAY BUT BOWEL CARE GIVEN. ABDOMEN SOFT AND NONTENDER. DRESSINGS INTACT TO HEELS FOR SKIN PROTECTION.
[2021-05-26 04:37] LABS: BASOPHILS ABSOLUTE AUTO 0.04 K/mm3 (0.00-0.23); BASOPHILS PERCENT AUTO 0 % (0-2); EOSINOPHILS ABSOLUTE AUTO 0.01 K/mm3 (0.00-0.68); EOSINOPHILS PERCENT AUTO 0 % (0-6); Hematocrit 32.6 % (33.0-51.0); Hemoglobin 10.7 g/dL (11.5-16.0); IMMATURE GRAN ABSOLUTE AUTO 0.31 K/mm3 (0.00-0.10); IMMATURE GRAN PERCENT AUTO 2 % (0-1); LYMPHOCYTES ABSOLUTE AUTO 0.75 K/mm3 (0.84-5.20); LYMPHOCYTES PERCENT AUTO 4 % (21-46); MONOCYTES ABSOLUTE AUTO 0.65 K/mm3 (0.16-1.47); MONOCYTES PERCENT AUTO 3 % (4-13); Mean Corpuscular HGB 31.4 pg (26.0-34.0); Mean Corpuscular HGB Conc 32.8 g/dL (31.5-36.5); Mean Corpuscular Volume 96 fL (80-100); Mean Platelet Volume 9.9 fL (9.1-12.4); NEUTROPHILS ABSOLUTE AUTO 18.88 K/mm3 (1.96-9.15); NEUTROPHILS PERCENT AUTO 92 % (41-73); Platelet Count 489 K/mm3 (150-400); RDW Coefficient Variation 12.2 % (11.7-14.2); RDW Standard Deviation 42.8 fL (35.1-46.3); Red Blood Cell Count 3.41 M/mm3 (3.80-5.20); White Blood Cell Count 20.64 K/mm3 (4.00-11.30)
--- NOTE | 2021-05-26 04:42 | NUR ---
SHIFT SUMMARY PT. AOX2 AND ON THE PHONE AT THE START OF THIS SHIFT. THE PT WAS PLEASANT AND ABLE TO DISCUSS CURRENT EVENTS AT THE START OF THIS SHIFT. HOWEVER THE NIGHT CONTINUED THE PT GREW FRUSTRATED WITH INCREASED CONFUSION ABOUT NOT RECALLING WHAT IS NEEDED FROM STAFF. PT NOT EASY TO REDIRECT AT TIMES WHEN CONFUSED. PT DID NOT SLEEP WELL THIS SHIFT BUT WAS CALM WHILE AWAKE. PT CURRENTLY DENIES ANY OTHER NEEDS AT THE MOMENT. THIS NURSE WILL CONTINUE TO MONITOR UNTIL REPORT IS GIVEN.
--- NOTE | 2021-05-26 16:29 | NUR ---
SHIFT SUMMARY PTS FEVER IMPROVED THROUGH THE DAY BUT MENTATION DID NOT. REMAINED CONFUSED TODAY AND AT ONE POINT STARTED ATTEMPTING TO REMOVE TUBING FROM HER PERSON AND STATING SHE DIDN'T GIVE PERMISSION FOR "ALL THIS TO BE DONE TO ME". THOUGHT SHE WAS [place] [facility] [place] IN [place]. APPEARED TO BE ATTEMPTING TO COVER HER CONFUSION WITH HER PROFESSIONAL DEMEANER AND TAKING CONTROL OF AN UNKNOWN SITUATION. AGREED TO CT AND CAME BACK PAINFUL BUT ONCE SETTLED PAIN EASED AND PT WAS ABLE TO REST. WOUND VAC DRESSING CHANGED-SEE WOUND CARE/VAC NOTES.
[2021-05-27 04:56] LABS: BASOPHILS ABSOLUTE AUTO 0.04 K/mm3 (0.00-0.23); BASOPHILS PERCENT AUTO 0 % (0-2); EOSINOPHILS ABSOLUTE AUTO 0.07 K/mm3 (0.00-0.68); EOSINOPHILS PERCENT AUTO 0 % (0-6); Hematocrit 28.8 % (33.0-51.0); Hemoglobin 9.5 g/dL (11.5-16.0); IMMATURE GRAN PERCENT AUTO 2 % (0-1); LYMPHOCYTES ABSOLUTE AUTO 1.05 K/mm3 (0.84-5.20); LYMPHOCYTES PERCENT AUTO 6 % (21-46); MONOCYTES ABSOLUTE AUTO 0.57 K/mm3 (0.16-1.47); MONOCYTES PERCENT AUTO 3 % (4-13); Mean Corpuscular HGB 31.3 pg (26.0-34.0); Mean Corpuscular Volume 95 fL (80-100); Mean Platelet Volume 9.6 fL (9.1-12.4); NEUTROPHILS ABSOLUTE AUTO 16.71 K/mm3 (1.96-9.15); NEUTROPHILS PERCENT AUTO 89 % (41-73); Platelet Count 447 K/mm3 (150-400); RDW Coefficient Variation 12.6 % (11.7-14.2); RDW Standard Deviation 43.9 fL (35.1-46.3); Red Blood Cell Count 3.04 M/mm3 (3.80-5.20); White Blood Cell Count 18.84 K/mm3 (4.00-11.30)
[2021-05-27 05:40] LABS: Anion Gap 9 mmol/L (6-16); Blood Urea Nitrogen 20 mg/dL (8-24); Bun/Creatinine Ratio 31.1 (12.0-20.0); CO2, Blood 26 mmol/L (21-32); Calcium, Blood 8.9 mg/dL (8.5-10.1); Chloride, Blood 98 mmol/L (98-108); Creatinine, Blood 0.64 mg/dL (0.40-1.00); Glomerular Filtration Rate >60 (60-); Glucose, Blood 74 mg/dL (70-99); Potassium, Blood 4.5 mmol/L (3.5-5.5); Sodium, Blood 133 mmol/L (136-145)
--- NOTE | 2021-05-27 06:01 | NUR ---
SHIFT SUMMARY PT AOX2 AT TIMES AND HAS INCREASED CONFUSION WITH BEHAVIORS AT HS. PT WILL HAVE A LOGICAL CONVERSATION AT ONE MOMENT THEN BECOME IRRATIONAL YELLING AT STAFF WHILE TRYING TO EXIT THEIR BED TO "CATCH MY FLIGHT!" PT NOT EASY TO REDIRECT AND WAS DETERMINED TO PACK TO LEAVE THIS MORNING. PT. WOULD YELL INTO THE CLARK, "HELP NOBODY WILL GIVE ME A DRINK I'M GOING TO OF DEHYDRATION." MEANWHILE, POURING OUT JUICE OR WATER ON THE FLOOR WHILE YELLING. PT TOOK OFF SCDs AND ATTEMPTED TO PULL IV, PT WAS MEDICATED PER EMAR FOR BEHAVIORS AND PAIN. STAFF REPOSITIONED THE PT Q2 FOR COMFORT AND TO HELP EASE PAIN ALONG WITH MEDICATION. AFTER THIS NURSE WAS BACK FROM LUNCH PT HAD IV IN HAND ASLEEP IN BED. THIS NURSE WILL ATTEMPT TO REPLACE THE IV AND GIVE 0600 ABX. WILL CONTINUE TO MONITOR UNTIL REPORT IS GIVEN.
--- NOTE | 2021-05-27 18:30 | NUR ---
PT HAS BEEN CONFUSED, AND REPORTED PAIN THIS MORNING, MEDICATED WITH NORCO AND IV FENTANYL PER EMAR, WITH GOOD RELIEF. SHE DID RECOGNIZE HER DAUGHTER AND GRANDSON THIS AFTERNOON. SACRAL WOUND VAC MAINTAINING GOOD SUCTION, GRIFFITHS PATENT AND DRAINING. NEW RFA IV PLACED BY FRANCESCO Martin THIS MORNING. TO IMAGING FOR SACRAL/COCCYX XRAY, TOLERATED WELL. NO ACUTE CHANGES NOTED THIS SHIFT, WILL CONTINUE TO MONITOR AND REPORT TO ONCOMING RN.
--- NOTE | 2021-05-28 05:29 | NUR ---
SHIFT SUMMARY PT. AOX2-3 AT TIMES BUT MOSTLY CONFUSED AT NIGHT AND WAS ASLEEP AT THE START OF THIS SHIFT. PT WOKE UP AND WAS ABLE TO KNOW THE TIME, DATE AND LOCATION. HOWEVER, 30MINS LATER WAS CONFUSED ABOUT ALL THREE AND YELLING OUT IN THE CLARK TO PEOPLE PASSING, "ARE YOU A HUMAN OR AN ALIEN, HELP ME PLEASE!" PT. EASIER TO REDIRECT AND ORIENT BUT CONSTANTLY REMINDED. PT WAS LESS AGGRESSIVE AND AGITATED THIS SHIFT. PT C/O OF COCCYX PAIN AND WAS MEDICATED PER EMAR. PT RESTED WELL NO S/S OF DISTRESS AND WAS SNORING LOUD UPON ROUNDS/TURNS. PT CURRENTLY ASLEEP WITH RISE AND FALL OF CHEST. THIS NURSE WILL CONTINUE TO MONITOR UNTIL REPORT IS GIVEN.
--- NOTE | 2021-05-28 18:28 | NUR ---
PT MENTATION HAS BEEN CLEARER TODAY, PAIN APPEARS TO BE SOMEWHAT BETTER CONTROLED TODAY, MEDICATED WITH PO NORCO X1. DR CAMARGO STARTED PT PO PREDNISONE TRIAL FOR ARTHRITIC INFLAMATION AND PAIN. MONITOR FOR EFFECTIVENESS. IV ABX DISCONTNUED. NO ACUTE CHANGES NOTED THIS SHIFT, WILL MONITOR AND REPORT TO ONCOMING RN
--- NOTE | 2021-05-29 00:32 | NUR ---
PT BECAME AGGRESSIVE WITH STAFF AND YELLING SO LOUD THIS NURSE HEARD IT IN ANOTHER ROOM DOWN THE CLARK. STAFF HAS BEEN IN OFTEN THE PT CALLS STAFF FREQUENTLY AND ATTEMPTS TO STAFF SPLIT IF THINGS ARE NOT DONE TO THEIR LIKING. THE PT TOLD STAFF, "YOU WORK HERE TO HELP ME WITH WHATEVER I ASK AND NEED WHEN I PUSH THIS BUTTON." THIS NURSE SPOKE WITH THE PT ABOUT BECOMING AGITATED WITH STAFF AND OFFERED A PRN TO HELP. THE PT AGREED AND CONTINUED TO TRY TO STAFF SPLIT BUT THIS NURSE QUICKLY REDIRECTED THE PT. PT MEDICATED PER EMAR AND CALM STAFF AND THIS NURSE CONTINUE TO MONITOR VIA ROUNDS/TURNS.
[2021-05-29 04:43] LABS: BASOPHILS ABSOLUTE AUTO 0.07 K/mm3 (0.00-0.23); BASOPHILS PERCENT AUTO 0 % (0-2); EOSINOPHILS PERCENT AUTO 0 % (0-6); Hematocrit 30.1 % (33.0-51.0); Hemoglobin 10.1 g/dL (11.5-16.0); IMMATURE GRAN ABSOLUTE AUTO 0.81 K/mm3 (0.00-0.10); IMMATURE GRAN PERCENT AUTO 5 % (0-1); LYMPHOCYTES ABSOLUTE AUTO 0.77 K/mm3 (0.84-5.20); LYMPHOCYTES PERCENT AUTO 5 % (21-46); MONOCYTES ABSOLUTE AUTO 0.18 K/mm3 (0.16-1.47); MONOCYTES PERCENT AUTO 1 % (4-13); Mean Corpuscular HGB 31.7 pg (26.0-34.0); Mean Corpuscular HGB Conc 33.6 g/dL (31.5-36.5); Mean Corpuscular Volume 94 fL (80-100); Mean Platelet Volume 9.4 fL (9.1-12.4); NEUTROPHILS PERCENT AUTO 89 % (41-73); Platelet Count 493 K/mm3 (150-400); RDW Coefficient Variation 12.5 % (11.7-14.2); RDW Standard Deviation 43.3 fL (35.1-46.3); Red Blood Cell Count 3.19 M/mm3 (3.80-5.20); White Blood Cell Count 16.83 K/mm3 (4.00-11.30)
--- NOTE | 2021-05-29 05:43 | NUR ---
SHIFT SUMMARY PT AOX2-3 AT TIMES AND READING AT THE START OF THIS SHIFT. PT HAS BEEN MORE DEMANDING THIS SHIFT AND WHEN THIS NURSE ASKED THE PT IS UPSET ABOUT BEING HERE. "MY SON IS HERE TO VISIT AND WE STILL DON'T KNOW WHEN I CAN GET OUT TO BE WITH FAMILY!" THIS NURSE TRIED TO EXPLAIN THE PROCESS AGAIN BUT THE PT WAS TOO AGITATED. PREVIOUS NOTE EXPLAINS HOW BEHAVIORS INCREASED THIS SHIFT BUT PT MEDICATED PER EMAR. PT HAS NOT RESTED MUCH THIS SHIFT BUT DID CALM DOWN MORE. THIS NURSE WILL CONTINUE TO MONITOR UNTIL REPORT IS GIVEN.
[2021-05-29 05:48] LABS: Anion Gap 11 mmol/L (6-16); Blood Urea Nitrogen 19 mg/dL (8-24); Bun/Creatinine Ratio 42.3 (12.0-20.0); CO2, Blood 24 mmol/L (21-32); Calcium, Blood 9.3 mg/dL (8.5-10.1); Chloride, Blood 100 mmol/L (98-108); Creatinine, Blood 0.45 mg/dL (0.40-1.00); Glomerular Filtration Rate >60 (60-); Glucose, Blood 147 mg/dL (70-99); Potassium, Blood 4.1 mmol/L (3.5-5.5); Sodium, Blood 135 mmol/L (136-145)
--- NOTE | 2021-05-29 17:46 | NUR ---
SHIFT SUMMARY PT HAS BEEN VERY CONFUSED THIS SHIFT. PT WAS PLEASANTLY CONFUSED AND COOPERATIVE THIS AM WITH MED PASS AND BREAKFAST, AND WORKING WITH PHYSICAL THERAPY. BY THE AFTERNOON, PT WAS SCREAMING AT STAFF AND TRYING TO GET OUT OF BED. PT EVENTUALLY CALMED DOWN. PT WAS APOLOGETIC LATER IN THE AFTERNOON AND COOPERATIVE CARE. PT'S WOUND VAC WAS CHANGED AT THIS TIME AND IS NOW PATENT AND DRAINING. PT TOOK A NAP AND AWOKE ANXIOUS AND CRYING. THIS RN AND IMAGING TECH TRIED TO COMFORT PT. PT CALLED SON AND TALKED WITH HIM. [facility] SHEET WAS SENT TO ED. NO DISTRESS AT THIS TIME. CALL LIGHT IN REACH. WILL CONTINUE TO MONITOR AND REPORT TO ONCOMING RN. BED ALARM ON FOR SAFETY.
--- NOTE | 2021-05-30 05:07 | NUR ---
SHIFT SUMMARY PT AOX2-3 AT TIMES AND WAS ASLEEP AT THE START OF THIS SHIFT. PT WOKE UP CONFUSED AND DISORIENTED YELLING, "GET OUT OF MY HOUSE! CALL THE POLICE!" PT BEGAN YELLING AT STAFF ATTEMPTING TO HELP REDIRECT AND ORIENT THEM. PT WAS NOT ABLE TO CALM DOWN AND GREW AGITATED STATING THIS NURSE AND STAFF BROKE IN THEIR HOUSE. PT BEGAN THROWING ITEMS AT STAFF YELLING AGAIN, "GET OUT OF MY HOUSE AND WHO IS IN CHARGE?" PT MEDICATED PER EMAR AND FINALLY WAS ABLE TO CALM DOWN ENOUGH TO REST SOME THIS SHIFT. PT WAS AWAKE WATCHING TV CALM AND ASKED REPETITIVE QUESTIONS JUST ANSWERED BY STAFF. WHEN THE STAFF ORIENTED THE PT THEY BEGAN TO CRY UPSET, "IS IT NOT DAY TIME AGAIN, THAT IS ALL I WANT IS FOR IT TO NOT BE NIGHT TIME!" WHEN THIS NURSE AND STAFF NO LONGER RESPONDED THE PT INSTANTLY STOPPED BEING TEARFUL AND STATED, "WELL SO MUCH FOR GETTING A REACTION OUT OF ANY OF YOU I WILL JUST GO BACK TO BED!" PT RESTED SOME WITH NO S/S OF DISTRESS, WILL CONTINUE TO MONITOR UNTIL REPORT IS GIVEN.
--- NOTE | 2021-05-30 18:41 | NUR ---
SHIFT SUMMARY PATIENT IS NOW AAOX2 ONLY AND EASILY REORIENTED TO TIME. SHE SOMETIMES REMEMBERS THE TIME AND THEN FORGETS. SHE GOES IN AND OUT OF AGGITATION NOTED. OCCASIONALLY YELLS OUT UNNICE WORDS TO STAFF AND PEOPLE IN THE HALLWAY. YAMILETHREXA WAS GIVEN X 1 IN THIS AM FOR AGGITATION. PSYCH MD SEEN THIS PM AND MADE CHANGES TO MEDS IN HOPES TO SEE IMPROVEMENT. WOUND VAC TO SACRUM WAS RESURCURED AND PLACED WITH NO MORE ISSUES. VSS. NAD NOTED. HAS NO C/O PAIN, SOB, N/V VOICED AT THIS TIME. ONLY ATE SMALL AMOUNTS OF MEALS, ABOUT 305 MAYBE. DAUGHTER VISITED THIS EVENING AND LEFT HER IN GOOD SPIRITS. WILL CONTINUE TO MONITOR IN CARE.
--- NOTE | 2021-05-31 05:52 | NUR ---
PT AOX2-3 AT TIMES AND ABLE TO RECALL EVENTS, LOCATION, TIME AND DATE. PT WAS POLITE TO STAFF MORE THAN USUAL AND ABLE TO USE THE CALL LIGHT INSTEAD OF YELLING INTO THE HALLWAY. PT C/O PAIN WITH Q2 TURNS AT TIMES AND MEDICATED PER EMAR THIS SHIFT. PT WAS FINALLY ABLE TO REST MOST OF THIS SHIFT WITH NO S/S OF DISTRESS WITH LOUD SNORING. PT CURRENTLY READING AND WRITING ON TABLE IN BED,DENIES ANY NEEDS AT THE MOMENT. THIS NURSE WILL CONTINUE TO MONITOR UNTIL REPORT IS GIVEN.
--- NOTE | 2021-05-31 18:37 | NUR ---
SHIFT SUMMARY PATIENT WAS AAOX4 MAJORITY OF THE DAY. AFTER SLEEPING THIS PM AWAKEND AND ASKED WHERE SHE WAS BUT EASILY REORIENTED TO PLACE. SHE WAS VERY PLEASANT THE ENTIRE DAY AND MORE CHEERFUL. SMILED ON AND OFF DURING CONVERSATION. HAD NO C/O PAIN, SOB, N/V OR DISCOMFORT VOICED ON TODAY. WOUND VAC AND DRESSING TO SACRAL/COCCXY AREA WAS REMOVED AND CHANGED ON TODAY PER MD ORDERS. WOUND WITH MODERATE AMOUNT OF SEROSANGIOUS DRAINAGE NOTED WITH FOUL ODOR TO SITE OF STAGE 4 ULCER. DAUGHTER WAS AT BEDSIDE FOR VISIT. VSS. JUAN DIEGO EATON. TOLERATED MEALS WELL AND TOOK ALL MEDS WITH NO ISSUES. SHE DID WORK WITH PT/OT TODAY WITH NO HESITATION. WILL CONTINUE TO MONITOR IN CARE UNTIL ONCOMING NURSE HANDOFF.
--- NOTE | 2021-06-01 06:26 | NUR ---
SHIFT SUMMARY PATIENT ALERT AND ORIENTED X3. MEDICATED PER EMAR FOR PAIN, NO COMPLAINTS OF SHORTNESS OF BREATH. NO ACUTE ISSUES NOTED OVERNIGHT. BED IN LOWEST POSITION WITH WHEELS LOCKED AND ALARM ON. CALL LIGHT WITHIN REACH. REPORT GIVEN TO ONCOMING RN.
--- NOTE | 2021-06-01 18:13 | NUR ---
SHIFT SUMMARY PATIENT APPEARS TO BE AAOX4 AT THIS TIME AND HAS REMAINED AWARE ALL DAY. VISITED WITH GRANDSON AND HELD LEGABLE UP TO DATE VONVERSATION. SHE DID COOPERATE WITH PT AND OT ON TODAY. WAS UP IN ROOM AND WALK TO [facility]. REMAINED IN CHAIR FOR 2 HOURS AND BACK TO BED WITH HELP OF CURATOR. VSS. NAD NOTED. WOUND VAC TO SACRUM STILL IN PLACE AND NO LEAKS NOTED. IV TO RIGHT ARM. FOLLOWED ALL INSTRUCTIONS WITH NO ANGER OR AGGRESION TODAY. SMILED ON AND OFF AND TOOKALL MEDS WITH NO ISSUES. DID C/O LOWER BACK PAIN X1 AND WAS MEDICATED WITH TYLENOL 650 AND STATED FELT RELIEF. WILL CONTINUE TO MONITOR IN CARE
--- NOTE | 2021-06-02 00:42 | NUR ---
PHYSICIAN COMMUNICATION CONTACTED LEGAL ANALYST PHYSICIAN, DR PEÑALOZA, TO NOTIFY HIM THAT THE PATIENT WAS EXPERIENCING 10/10 PAIN POSE WOUND VAC PLACEMENT WITH TYLENOL BEING INEFFECTIVE. DR PEÑALOZA ORDERED OXYCODONE 5 MG EVERY 4 HOURS NEEDED FOR PAIN.
--- NOTE | 2021-06-02 05:32 | NUR ---
SHIFT SUMMARY PATIENT ALERT AND ORIENTED X3. MEDICATED PER EMAR FOR PAIN. NO COMPLAINTS OF SHORTNESS OF BREATH. NEW WOUND VAC DRESSING PLACED ON PATIENT'S COCCYX WOUND. NO ACUTE ISSUES NOTED OVERNIGHT. BED IN LOWEST POSITION WITH WHEELS LOCKED AND ALARM ON. CALL LIGHT WITHIN REACH. REPORT GIVEN TO ONCOMING RN.
--- NOTE | 2021-06-02 18:23 | NUR ---
SHIFT SUMMARY FINN IS AAOX4 AND HAS BEEN ALL DAY. SHE HAS MORE OF A LOW MOOD AND APPEARED VERY TIRED AND WEAK.CRYING ON AND OFF ABOUT PAIN AND UNABLE TO GET COMFORTABLE. SHE DID WORK WITH OT ON TODAY AND GET UP TO THE CHAIR AND STAYED FOR 1 HOUR. PT WAS TO WEAK TO GET BACK TO BED OR ASSIST HER. HAD TO USE THE STAND LIFE TO GET HER BACK TO BED WITH HELP OF ELEVATOR TECHNICIAN. SHE DID HAVE A LARGE STOOL AND HAD TO REMOVE HER COCCYX DRESSING AND CHANGE. APPLIED NEW DRESSING AND NEW WOUND VAC TO AREA. MEDICATED WITH OXY AND TYLENOL FOR PAIN. NAD NOTED. VSS. DID HAD A SMALL EPISODE OF EMESIS WHEN UP TO CHAIR AND MEDICATED WITH ZOFRAN X 1. NO C/O SOB OR N/V AT THIS TIME. WILL CONTINUE TO MONITOR IN CARE UNTIL HANDOFF TO ONCOMING NURSE.
--- NOTE | 2021-06-03 05:18 | NUR ---
SHIFT SUMMARY - PT WAS EXPERIENCING PAIN TO LEFT HIP/COCCYX AT THE BEGINNING OF THE SHIFT. AFTER OXYCODONE AND TYLENOL GIVEN, PT WAS ABLE TO SLEEP THROUGHOUT MOST OF THE NIGHT. PT'S SKIN COLOR IS PALE. WOUND VAC IN PLACE TO COCCYX AREA. ATTENDS IN PLACE. GRIFFITHS IN PLACE - CLEAR YELLOW URINE OUT. MEPILEX HEEL PROTECTORS TO BILATERAL FEET AND LEGS ELEVATED ON A PILLOW. CALL LIGHT WITHIN REACH. BED IN LOW POSITION. FLUIDS AT BEDSIDE. WILL CONTINUE TO MONITOR UNTIL AM SHIFT.
--- NOTE | 2021-06-03 18:32 | NUR ---
SHIFT SUMMARY PT WAS AAOX4 FOR ENTIRE DAY AND IN GOOD SPIRITS WITH NO MOOD CHANGES OR ACTING OUT. DID C/O PAIN ON AND OFF AND WAS TREATED BY THIS NURSE WITH TYLENOL AND OXY 5MG PO ON 2 OCCURANCES AND STATED RELIEF. CHANGED POSITIONS MULTIPLE TIMES FOR COMFORT. NO C/O SOB OR N/V NOTED. SHE WAS ABLE TO WORK WITH PT AND UP TO CHAIR FOR 2 HOURS. NO BM TODAY AND HELD STOOL SOFTNER FOR PREVIOUS DAY DIARRHEA. WOUND VAC IN PLACE AND NEEDS CULTURE ON NEXT CHANGE. DID START IV ANTIBIODICS AFTER SPEAKING WITH COVERING DR ON SHIFT. WILL CONTINUE TO MONITOR IN CARE UNTIL ONCOMING SHIFT.
--- NOTE | 2021-06-04 03:50 | NUR ---
PATIENT HAS BEEN CALM AND COOPERATIVE THIS SHIFT. PATIENT VERBALIZED THAT HSE HOPES SHE CAN GET WELL ENOUGHT TO ENJOY THE LAST OF HER LIFE. A&O. VITALS REVIEWED.
[2021-06-04 04:42] LABS: Hemoglobin 11.5 g/dL (11.5-16.0); Mean Corpuscular HGB 31.7 pg (26.0-34.0); Mean Corpuscular HGB Conc 32.9 g/dL (31.5-36.5); Mean Corpuscular Volume 96 fL (80-100); Mean Platelet Volume 9.1 fL (9.1-12.4); Platelet Count 545 K/mm3 (150-400); RDW Coefficient Variation 13.2 % (11.7-14.2); RDW Standard Deviation 46.7 fL (35.1-46.3); Red Blood Cell Count 3.63 M/mm3 (3.80-5.20); White Blood Cell Count 17.74 K/mm3 (4.00-11.30)
[2021-06-04 05:34] LABS: Alanine Aminotransfer (ALT/SGP 6 U/L (12-78); Albumin, Blood 2.2 g/dL (3.4-5.0); Albumin/Globulin Ratio 0.7 (0.8-1.8); Alk Phos 117 U/L (50-136); Anion Gap 6 mmol/L (6-16); Aspartate Aminotrans (AST/SGOT 11 U/L (12-37); Bilirubin, Total 0.5 mg/dL (0.1-1.0); Blood Urea Nitrogen 14 mg/dL (8-24); Bun/Creatinine Ratio 24.6 (12.0-20.0); CO2, Blood 31 mmol/L (21-32); Calcium, Blood 9.5 mg/dL (8.5-10.1); Chloride, Blood 100 mmol/L (98-108); Creatinine, Blood 0.57 mg/dL (0.40-1.00); Globulin, Blood 3.1 g/dL (2.2-4.0); Glomerular Filtration Rate >60 (60-); Glucose, Blood 74 mg/dL (70-99); Potassium, Blood 4.3 mmol/L (3.5-5.5); Sodium, Blood 137 mmol/L (136-145); Total Protein, Blood 5.3 g/dL (6.4-8.2)
--- NOTE | 2021-06-04 18:15 | NUR ---
PT SUMMARY: PT REMAINS ALERT, MILD CONFUSION NO MOOD SHIFTING NOTED, PT WAS PLEASANT AND COOPERATIVE, CALLS APPROPRIATELY. VITALS REMAINED STABLE, DENIES SOB, HAS SOME LEFT LEG PAIN AND COCCYX WORSENS WITH MOVEMENT MEDICATED PO PAIN MEDS X1 AND WAS EFFECTIVE. WOUND VAC DRAINING PATENT AT 120MMHG, FOUL SMELLING ODOR IN THE ROOM DUE TO DRAINAGE, DRESSING WAS REINFORCED TO KEEP INTACT, TO CHANGE DRESSING TOMORROW AND TO RECOLLECT WOUND CULTURE. NO REPORTED BM FOR THE SHIFT, GRIFFITHS DRAINING PATENT VIA GRAVITY. PT REMAINS ON IV ABO FOR WOUND INFECTION. PT REPOSITIONED Q 2 HRS FOR COMFORT AND TO PROMOTE WOUND HEALING. DECREASE APPETITE. NO OTHER ISSUES REPORTED. PT NOW RESTING IN BED CALL LIGHTS WITHIN REACH WILL REPORT TO ONCOMING SHIFT
--- NOTE | 2021-06-05 04:22 | NUR ---
PATIENT WAS AWAKE AT ETHE START OF SHIFT. PATIENT WAS VERY QUIET AND NOT TALKATIVE. TOOK PM MEDICATIOSN AND TOLERATED. REPORTED PAIN 9 OUT OF 10 AND WAS GIVEN PRN PAIN MEDICATION. Q2HR TURN AND CHECKS. VITALS REVIEWED CALL LIGHT IN REACH BED IN LOWEST POSITION. WILL CONTINUE TO MONITOR UNTIL SHIFT CHANGE.
[2021-06-05 13:44] LABS: Influenza A, PCR NEGATIVE (NEGATIVE); Influenza B, PCR NEGATIVE (NEGATIVE); Resp Syncytial Virus, PCR NEGATIVE (NEGATIVE); SARS-Cov-2 (COVID-19) PCR, MMC NEGATIVE (NEGATIVE)
--- NOTE | 2021-06-05 18:29 | NUR ---
SHIFT SUMMARY CONCERN FOR WOUND WORSENING RELAYED TO DR. CRAMER THIS AM AND NEW CONSULT FOR SURGERY CALLED TODAY. DR. TREVINO CALLED AND PLAN TO TAKE PT BACK TOMORROW MORNING FOR ANOTHER I&D IS IN PLACE. SARAI FRANCISCO COMPLETED. NPO AT MIDNIGHT. PT HAS BEEN ANXIOUS SINCE BEING TOLD SHE WILL BE HAVING ANOTHER SURGERY. PT UNDESIDED ON IF SHE WANTS TO BE A DNR OR NOT. PALLIATIVE CARE NOTIFIED AND STATES THEY WILL COME AND SPEAK WITH THE PT. OTHERWISE NO ACUTE CHANGES IN ASSESSMENT AT THIS TIME. WOUND VAC SEALED AND CHANGE DELAYED BECAUSE OF SURGERY TOMORROW. DARK COLORED, OUTPUT. CALL LIGHT IN REACH. VS REVIEWED.
--- NOTE | 2021-06-06 04:43 | NUR ---
PATIENT WAS VERY QUIET AND WITHDRAWN DURING THIS SHIFT. PATIENT KEPT ASKING WHHERE WOULD SHE GO AFTER HER SURGERY. i REASSURED HER THAT SHE'D BE TAKEN CARE OF HERE AT THE HOSPITAL. PM MEDICATIONS TOLERATED WELL.GRIFFITHS PATENT HANGING AT THE BEDSIDE. PATIENT HAS BEEN NPO SINCE MIDNIGHT. VITALS REVIEWED. CALL LIGHT IN REACH.
--- NOTE | 2021-06-06 09:39 | NUR ---
06/06/21 0939 Kvng Clinton PATIENT ENTERED OR WITH GRIFFITHS CATHETER IN PLACE. 600 DARK YELLOW URINE PRESENT IN CONTAINER. STAT LOCK REMOVED IN ORDER TO PREVENT SKIN BREAK DOWN ON THIGH IN PRONE POSITION. PATIENT ON SCHEDULED ANTIBIOTICS DUE AT 1600 TODAY. OLD WOUND DRESSING AND VAC REMOVED, AND PREP WAS PERFORMED BY NURSE KVNG.
--- NOTE | 2021-06-06 17:44 | NUR ---
SHIFT SUMMARY PT RESTING QUIETLY AT START OF SHIFT, NPO FOR SX PROCEDURE. DR TREVINO TO EARLY TO REPORT A SHORT DELAY. PT TAKEN DOWN TO SX AT 0813, WITH WOUND VAC IN PLACE TO BUTTOCKS/COCCYX AREA. SX DEBRIDEMENT DONE AND NEW WOUND VAC PLACED. PT RETURNED AT 11:00, STILL A LITTLE DROWSY FROM PROCEDURE. PT C/O PAIN WITH TX AND MOVING; MEDICATED PER EMAR. PT LATER REPORTED IT HELPED. PT REPOSITIONED NEEDED TO KEEP PRESSURE OFF BUTTOCKS. PT IS FORGETFUL AT TIMES. GRIFFITHS TO GRAVITY, PATENT. PER OR REPORT, PT WAS INCONTINENT OF BOWEL X2 WHILE IN PROCEDURE. CO-OP WITH TAKING MEDICATIONS. STARTED ON CL AND JELLO, TOLERATED WELL. REG DIET ORDERED FOR DINNER. CALL LT IN REACH. BED ALARM ON FOR SAFETY.
--- NOTE | 2021-06-07 05:24 | NUR ---
PATIENT FINALLY SETTLED DOWN AFTER EXPRESSING CONCERN OVER DC PLAN. I REASSURED THE PATIENT THAT THIS WILL BE DISCUSSED WITH HER AT THE APROPRIATE TIME. Q2 HR TURNS AND CHECKS COMPLETED. PATENT GRIFFITHS HANGING AT THE BEDSIDE. WOUND VAC TO COCCYX @ 80MMG. VITALS REVIEWED. CALL LIGHT IN REACH
[2021-06-07 08:58] LABS: BASOPHILS ABSOLUTE AUTO 0.03 K/mm3 (0.00-0.23); BASOPHILS PERCENT AUTO 0 % (0-2); EOSINOPHILS ABSOLUTE AUTO 0.01 K/mm3 (0.00-0.68); EOSINOPHILS PERCENT AUTO 0 % (0-6); Hemoglobin 10.5 g/dL (11.5-16.0); IMMATURE GRAN ABSOLUTE AUTO 0.18 K/mm3 (0.00-0.10); IMMATURE GRAN PERCENT AUTO 1 % (0-1); LYMPHOCYTES ABSOLUTE AUTO 0.67 K/mm3 (0.84-5.20); LYMPHOCYTES PERCENT AUTO 4 % (21-46); MONOCYTES ABSOLUTE AUTO 0.78 K/mm3 (0.16-1.47); MONOCYTES PERCENT AUTO 4 % (4-13); Mean Corpuscular HGB 31.3 pg (26.0-34.0); Mean Corpuscular HGB Conc 32.8 g/dL (31.5-36.5); Mean Corpuscular Volume 96 fL (80-100); Mean Platelet Volume 9.5 fL (9.1-12.4); NEUTROPHILS ABSOLUTE AUTO 17.24 K/mm3 (1.96-9.15); NEUTROPHILS PERCENT AUTO 91 % (41-73); Platelet Count 393 K/mm3 (150-400); RDW Coefficient Variation 13.1 % (11.7-14.2); RDW Standard Deviation 45.1 fL (35.1-46.3); Red Blood Cell Count 3.35 M/mm3 (3.80-5.20); White Blood Cell Count 18.91 K/mm3 (4.00-11.30)
[2021-06-07 09:21] LABS: Albumin, Blood 1.8 g/dL (3.4-5.0); Anion Gap 6 mmol/L (6-16); Blood Urea Nitrogen 21 mg/dL (8-24); Bun/Creatinine Ratio 45.4 (12.0-20.0); CO2, Blood 29 mmol/L (21-32); Calcium, Blood 9.4 mg/dL (8.5-10.1); Chloride, Blood 100 mmol/L (98-108); Creatinine, Blood 0.46 mg/dL (0.40-1.00); Glomerular Filtration Rate >60 (60-); Glucose, Blood 134 mg/dL (70-99); Magnesium, Blood 1.7 mg/dL (1.6-2.4); Phosphorus, Blood 2.2 mg/dL (2.5-4.9); Potassium, Blood 4.3 mmol/L (3.5-5.5); Sodium, Blood 135 mmol/L (136-145)
--- NOTE | 2021-06-07 16:26 | NUR ---
SHIFT SUMMARY PT IS AO. PT MEDICATED X2 FOR PAIN PER EMAR. PT MEDICATED X2 FOR SEROQUEL PER EMAR. PT WOUND VAC TO BE CHANGED SATURDAY. PT DENIES N/V, SOB. PT PENDING PLACEMENT TO SNF. PT REPOSITIONED FREQUENTLY T/O SHIFT. PT DID NOT HAVE VISITORS THIS WILFREDO. PT WORKED WITH PT THIS SHIFT AND REMAINS LIFT PT FOR TRANSFERS. PT IS IN BED, CALL LIGHT IN REACH, LOW POSITION.
[2021-06-08 05:18] LABS: BASOPHILS ABSOLUTE AUTO 0.02 K/mm3 (0.00-0.23); BASOPHILS PERCENT AUTO 0 % (0-2); EOSINOPHILS ABSOLUTE AUTO 0.18 K/mm3 (0.00-0.68); EOSINOPHILS PERCENT AUTO 1 % (0-6); Hematocrit 30.3 % (33.0-51.0); IMMATURE GRAN ABSOLUTE AUTO 0.14 K/mm3 (0.00-0.10); IMMATURE GRAN PERCENT AUTO 1 % (0-1); LYMPHOCYTES ABSOLUTE AUTO 1.17 K/mm3 (0.84-5.20); LYMPHOCYTES PERCENT AUTO 8 % (21-46); MONOCYTES PERCENT AUTO 8 % (4-13); Mean Corpuscular HGB 31.5 pg (26.0-34.0); Mean Corpuscular Volume 96 fL (80-100); Mean Platelet Volume 9.8 fL (9.1-12.4); NEUTROPHILS ABSOLUTE AUTO 12.36 K/mm3 (1.96-9.15); NEUTROPHILS PERCENT AUTO 82 % (41-73); Platelet Count 418 K/mm3 (150-400); RDW Standard Deviation 45.7 fL (35.1-46.3); Red Blood Cell Count 3.17 M/mm3 (3.80-5.20); White Blood Cell Count 15.07 K/mm3 (4.00-11.30)
--- NOTE | 2021-06-08 05:49 | NUR ---
PATIENT WAS QUIET AND DROUSY THIS SHIFT. REPORTED PAIN WITH REPOSITIONING. MEDICATED PER AUG. Q2 HR TURN AND GHECK PERFORMED. PATENT GRIFFITHS HANGING AT THE BEDSIDE DRAINING CLEAR YELLOW URINE. WOUND VAC TO COCCYX @80MMG DRINING SEROSANGUINEOUS FLUID. VITALS REVIEWED. CALL LIGHT IN REACH AND BED ALARM ON.
--- NOTE | 2021-06-08 17:24 | NUR ---
SHIFT SUMMARY; PATIENT HAD EPISODE OF AGITATION THIS AM AND ALSO COMPLAINING OF SERVERE PAIN. [facility] DRAINING INTO RECEPTICLE. PER TODAY WAITING FOR TO DECIDE IF ANOTHER SURGERY WILL BE NEEDED OR IF PAITENT AN GO HOME. HER VITAL SIGNS ARE WITHIN NORMAL LIMITS. PATIENT IS VERY CONFUSED AND THINKS SHE IS IN [place] AT TIMES WELL AT THINKING SHE IS AT HOME. PATIENT BECOMES VERY TEARY AND ALSO SAYS "I DON'T EVEN THINK TAKEN MEDICINE IS WORTH THE EFFORT." MESSAGE LEFT FOR PALLIATIVE CARE TO VISIT WITH PATIENT.
--- NOTE | 2021-06-09 10:24 | NUR ---
CALL TO WHO IS CHERRY DIPPER FOR SURGERY TODAY. HAS REQUESTED THAT THIS RN CALL MD TO ASK IF OK TO DC PAITNET TO SNF TODAY OR OVER WEEKEND. RETURNS CALL TO THIS RN AND SAYS HE HAS NOT SEEN PATIENT BUT THAT HE IS OK TO DC TO SNF WITH WOUND VAC. NOTIFIED.
--- NOTE | 2021-06-09 15:12 | NUR ---
Met with pt to review her needs and plan of care. Pt was very tearful throughout conversation. She had many questions about woundvac care and her options. Gave her detatailed content on her care needs s o she can speak with her family and formulate a plan. We discussed getting care here and working towards a future plan of transfer. We reviewed her strugles with food and strategies to increase her po intak. Did symptom review. Greatly increased nerve pain to the leg and buttocks with wound vac. Updated physican plan is to titrate up on neurontin and to get her to rehab. pt high risk for readmission will reach out to daughter. She is out of state today and traveling.
--- NOTE | 2021-06-09 17:14 | NUR ---
WOUND VAC CALL TO DR. TREVINO TO CLARIFY WOUND VAC ORDERS. PER DR. TREVINO USE EAKINS RING MATERIAL FROM SURGICAL FLOOR TO DRAPE MAGALYS WOUND AREA. SPIRAL BLACK FOAM MAY BE USED TO PACK WOUND WOUND IS NO LONGER TUNNELING AFTER I&D. WOUND VAC CHANGE COMPLETED PER ORDERS.
--- NOTE | 2021-06-09 18:23 | NUR ---
SHIFT SUMMARY; PALLLIATIVE CARE MET WITH PATIENT TODAY FOR OVER AN HOUR. Kori WESTFALL MET WITH THIS PATIENT AND DISCUSSED OPTIONS FOR GOING FORWARD CONCERNING CARE. WOUND VAC IS CHANGED PER ORDERS. LEAH COOLEY AND ROMAN RN REPLACE WOUND VAC PACKING AND SUCTION. PATIENT TOLERATED WELL. PATIENT MEDICATED X 2 FOR PAIN WITH ROXYCODONE. PATIENT WORKED WITH PT AND OT TODAY. SHE IS READY FOR SNF PLACEMENT HOWEVER NOT BEEN ACCEPTED OF THIS TIME. MORGAN ALVAREZ RN
--- NOTE | 2021-06-10 17:04 | NUR ---
NO ACUTE CHANGES AT THIS TIME. PT TURNED Q2 HRS. PT'S WOUND VAC AND GRIFFITHS WORKING WELL AT THIS TIME. PT DID GET VERBALLY GRUMPY AT AID START OF SHIFT, BUT SINCE HAS CALMED DOWN AND BEEN APPROPRIATE WITH HER CARE. NO DISTRESS NOTED AT THIS TIME WILL CONTINUE TO MONITOR.
[2021-06-11 05:10] LABS: BASOPHILS ABSOLUTE AUTO 0.05 K/mm3 (0.00-0.23); BASOPHILS PERCENT AUTO 0 % (0-2); EOSINOPHILS ABSOLUTE AUTO 0.27 K/mm3 (0.00-0.68); EOSINOPHILS PERCENT AUTO 2 % (0-6); Hematocrit 31.2 % (33.0-51.0); Hemoglobin 10.1 g/dL (11.5-16.0); IMMATURE GRAN ABSOLUTE AUTO 0.18 K/mm3 (0.00-0.10); IMMATURE GRAN PERCENT AUTO 1 % (0-1); LYMPHOCYTES ABSOLUTE AUTO 1.36 K/mm3 (0.84-5.20); LYMPHOCYTES PERCENT AUTO 10 % (21-46); MONOCYTES ABSOLUTE AUTO 0.99 K/mm3 (0.16-1.47); MONOCYTES PERCENT AUTO 7 % (4-13); Mean Corpuscular HGB Conc 32.4 g/dL (31.5-36.5); Mean Corpuscular Volume 96 fL (80-100); Mean Platelet Volume 9.7 fL (9.1-12.4); NEUTROPHILS ABSOLUTE AUTO 10.56 K/mm3 (1.96-9.15); NEUTROPHILS PERCENT AUTO 79 % (41-73); Platelet Count 384 K/mm3 (150-400); RDW Standard Deviation 45.9 fL (35.1-46.3); Red Blood Cell Count 3.26 M/mm3 (3.80-5.20); White Blood Cell Count 13.41 K/mm3 (4.00-11.30)
--- NOTE | 2021-06-11 06:54 | NUR ---
ALERT AND ORIENTED X3 AND VERY SWEET. WOUND VAC FUNCTIONING. TYLENOL GAVE IT TWICE FOR HEADACHE. GRIFFITHS IN PLACE;
--- NOTE | 2021-06-11 17:29 | NUR ---
PT AOX2 AND HAS CONFUSION WHICH SEEMS TO ALTERNATE THROUGHOUT THE DAY. PT HAS BEEN PLEASANT WITH CARE TODAY AND COOPERATIVE. PT IS ENCOURAGED TO TURN EVERY COUPLE HOURS AT TIMES SHE WILL REFUSE. PT'S GRIFFITHS PATIENT AND FLOWING AT THIS TIME. NO DISTRESS NOTED AND CALL LIGHT WITHIN REACH.
--- NOTE | 2021-06-12 05:05 | NUR ---
PATIENT WAS ALERT AND ORIENTED X2, STABLE VITAL SIGNS, NO CHANGES, PAIN DENIED ANY PAIN. PATIENT SLEPT THROUGH THE NIGHT. CALL LIGHT WITHIN REACH AND BED DOWN TO LOWEST POSITION. WILL CONTINUE TO MONITOR UNTIL HAND OFF
--- NOTE | 2021-06-12 17:42 | NUR ---
PATIENT IS ALERT AND ORIENTED TO PERSON, FOLLOWING DIRECTIONS AND PLACE AT TIMES. SHE OFTEN THINKS SHE IS SOMEWHERE ELSE OR WITH FAMILY. SHE PLAYED WITH HER BREAKFAST AND NEEDED ASSISTANCE WITH LUNCH. SHE HAS SLEPT THROUGHOUT THE SHIFT. SHE WAKES UP EASILY. SHE TAKES MEDS WHOLE. BEDBATH THIS SHIFT. GRIFFITHS IS IN PLACE. WOUND VAC WAS CHANGED THIS SHIFT AND A DEEP WOUND CULTURE WAS OBTAINED. THE PATIENT'S DAUGHTER VISITED HER THIS AFTERNOON. WILL CONTINUE TO MONITOR
--- NOTE | 2021-06-12 17:58 | NUR ---
pt pain and affectt better today. Daughter at bedside will continue to monitor.
--- NOTE | 2021-06-13 06:04 | NUR ---
PATIENT WAS ALERT AND ORIENTED X2, VERY SLEEPY. STABLE VITAL SIGNS, NO ACUTE CHANGES. PAIN DENIED ANY PAIN. PATIENT SLEPT THROUGH THE NIGHT. CALL LIGHT WITH IN REACH AND DOWN TO THE LOWEST POSITION. WILL CONTINUE TO MONITOR UNTIL HAND OFF.
--- NOTE | 2021-06-13 17:32 | NUR ---
SHIFT SUMMARY: PT A/O X 2-3 CONFUSED AT TIMES, PLEASANT AND COOPERATIVE WITH CARES. PT HAD PAIN IN BOTTOM TODAY. TYLENOL WAS INEFFECTIVE, OXYCODONE GIVEN AND EFFECTIVE THROUGHOUT DAYSHIFT. WOUND VAC THERAPY IN PLACE AND NO MALFUNCTIONS. DRAINING DARK RED DRAINAGE, NO PURULENT DRAINAGE OBSERVED.
--- NOTE | 2021-06-14 05:16 | NUR ---
PATIENT WAS ALERT AND ORIENTED X2, STABLE VITAL SIGNS, NO ACUTE CHANGES. PATIENT COMPLAINED OF PAIN AND WAS TREATED FOR IT. PATIENT DID NOT SLEEP MUCH AT NIGHT. CALL LIGHT WITH IN REACH AND BED DOWN TO THE LOWEST POSITION. WILL CONTINUE TO MONITOR UNTIL HAND OFF.
--- NOTE | 2021-06-14 13:25 | NUR ---
PT HAS BEEN LETHARGIC ALL DAY TODAY AND WAS REPORTED TO HAVE SLEPT THROUGH THE NIGHT. SHE HAS HAD A LOW GRAD TEMP OF 99.2 AND 99.4 TODAY. SHE DOES AWAKE AND RESPOND VERBALLY AND HAS TAKEN SMALL SIPS OF WATER BUT GOES RIGHT TO SLEEP. SHE HAS COMPLAINED OF LOWER ABD PAIN TO LLQ WITH PALPATION. SHE HAS HAD TWO LARGE SOFT BM'S TODAY THAT ARE BROWN IN COLOR. PT REPORTS HAVING HERNIA MID ABD THAT IS CHRONIC AND CAN BE VISULAIZED. DR. CAMARGO NOTIFIED OF PT STATUS AND HE ORDERED CBC AND CXR 1 VIEW. ORDERS PLACED.
[2021-06-14 13:54] LABS: BASOPHILS ABSOLUTE AUTO 0.09 K/mm3 (0.00-0.23); BASOPHILS PERCENT AUTO 0 % (0-2); EOSINOPHILS ABSOLUTE AUTO 0.12 K/mm3 (0.00-0.68); EOSINOPHILS PERCENT AUTO 1 % (0-6); Hematocrit 32.5 % (33.0-51.0); Hemoglobin 10.6 g/dL (11.5-16.0); IMMATURE GRAN ABSOLUTE AUTO 0.34 K/mm3 (0.00-0.10); IMMATURE GRAN PERCENT AUTO 1 % (0-1); LYMPHOCYTES ABSOLUTE AUTO 0.85 K/mm3 (0.84-5.20); LYMPHOCYTES PERCENT AUTO 3 % (21-46); MONOCYTES ABSOLUTE AUTO 1.04 K/mm3 (0.16-1.47); MONOCYTES PERCENT AUTO 4 % (4-13); Mean Corpuscular HGB 31.1 pg (26.0-34.0); Mean Corpuscular HGB Conc 32.6 g/dL (31.5-36.5); Mean Corpuscular Volume 95 fL (80-100); Mean Platelet Volume 9.4 fL (9.1-12.4); NEUTROPHILS PERCENT AUTO 91 % (41-73); Platelet Count 290 K/mm3 (150-400); RDW Coefficient Variation 13.2 % (11.7-14.2); RDW Standard Deviation 46.4 fL (35.1-46.3); Red Blood Cell Count 3.41 M/mm3 (3.80-5.20); White Blood Cell Count 25.74 K/mm3 (4.00-11.30)
[2021-06-14 17:00] LABS: Adenovirus Not Detected (NOT DETECT); Coronavirus 229E Not Detected (NOT DETECT); Coronavirus HKU1 Not Detected (NOT DETECT); Coronavirus NL63 Not Detected (NOT DETECT); Coronavirus OC43 Not Detected (NOT DETECT); Human Metapneumovirus Not Detected (NOT DETECT); Human Rhinovirus/Enterovirus Not Detected (NOT DETECT); Influenza A/2009-H1 Not Detected (NOT DETECT); Influenza A/H1 Not Detected (NOT DETECT); Influenza A/H3 Not Detected (NOT DETECT); Influenza B Not Detected (NOT DETECT); Parainfluenza Virus 1 Not Detected (NOT DETECT); Parainfluenza Virus 2 Not Detected (NOT DETECT); Parainfluenza Virus 3 Not Detected (NOT DETECT); SARS-Cov-2 (COVID-19), BioFire Not Detected (NOT DETECT)
[2021-06-14 17:01] LABS: Bordetella pertussis Not Detected (NOT DETECT); Chlamydophila pneumoniae Not Detected (NOT DETECT); Mycoplasma pneumoniae Not Detected (NOT DETECT); Parainfluenza Virus 4 Not Detected (NOT DETECT); Respiratory Syncytial Virus Not Detected (NOT DETECT)
--- NOTE | 2021-06-14 17:39 | NUR ---
PT HAS HAD LOOSE SOFT STOOLS YESTERDAY AND TODAY. NOTIFIED DR. CAMARGO OF LOOSE STOOLS. ORDER RECEIVED TO START VSL #3 PROBIOTIC DAILY, PR BOWEL MEDS. ORDERS PROCESSED.
--- NOTE | 2021-06-14 19:01 | NUR ---
SHIFT SUMMARY: PT WAS VERY LETHARGIC T/OUT MOST OF THE DAY BUT WAS MORE ALERT AND RESPONSIVE BY DINNERTIME. PT URINE IS DARK EMELIA, ENCOURAGED HER TO DRINK MORE FLUIDS. SHE HAD 2 VERY LARGE VERY SOFT BM'S TODAY. SCHEDULED BOWEL MEDICATIONS DISCONTINUED AND PROBIOTIC ADDED.
--- NOTE | 2021-06-15 05:21 | NUR ---
PATIENT WAS ALERT AND ORIENTED X2, STABLE VITAL SIGNS, NO ACUTE CHANGES, PATIENT DENIED ANY PAIN. PATIENT SLEPT MOST OF THE NIGHT. CALL LIGHT WITH IN REACH AND BED DOWN TO THE LOWEST POSITION. WILL CONTINUE TO MONITOR UNTIL HAND OFF.
[2021-06-15 12:08] LABS: Adenovirus F 40/41 Not Detected (NOT DETECT); Astrovirus Not Detected (NOT DETECT); Campylobacter Sp Not Detected (NOT DETECT); Cryptosporidium Not Detected (NOT DETECT); Cyclospora Cayetanensis Not Detected (NOT DETECT); E. Coli O157 Not Detected (NOT DETECT); Entamoeba Histolytica Not Detected (NOT DETECT); Enteroaggregative E. coli-EAEC Not Detected (NOT DETECT); Enteropathogenic E. coli-EPEC Not Detected (NOT DETECT); Enterotoxigenic E. coli-ETEC Not Detected (NOT DETECT); Giardia Lamblia Not Detected (NOT DETECT); Norovirus GI/GII Not Detected (NOT DETECT); Plesiomonas Shigelloides Not Detected (NOT DETECT); Rotavirus A Not Detected (NOT DETECT); Salmonella Sp Not Detected (NOT DETECT); Sapovirus Not Detected (NOT DETECT); Shiga Toxin-prod E. coli-STEC Not Detected (NOT DETECT); Shigella/Enteroin E. coli-EIEC Not Detected (NOT DETECT); Vibrio Cholerae Not Detected (NOT DETECT); Vibrio Sp Not Detected (NOT DETECT); Yersinia Enterocolitica Not Detected (NOT DETECT)
--- NOTE | 2021-06-15 17:45 | NUR ---
SHIFT SUMMARY PT IS PLEASANTLY CONFUSED AT AXO 2-3. SHE HAS BEEN RESTING COMFORTABLY TODAY. SHE HAS BEEN HAVING LIQUID STOOLS FOR THE PAST COUPLE DAYS AND TODAY TESTED POSITIVE FOR C DIFF AND WAS PLACED IN CONTACT ISOLATION. HER WOUNDS WERE RE DRESSED THIS AFTERNOON AND HER WOUND VAC WAS RE DONE IT HAD STOOL ALL OVER IT. UPDATE WAS GIVEN TO DAUGHTER AND HER STEP SON WAS ABLE TO VISIT HER TODAY. WILL CONTINUE TO MONITOR.
--- NOTE | 2021-06-16 07:17 | NUR ---
SHIFT SUMMARY PATIENT ALERT AND ORIENTED X3. MEDICATED PER EMAR FOR PAIN. NO COMPLAINTS OF SHORTNESS OF BREATH. NO ACUTE ISSUES NOTED OVERNIGHT. BED IN LOWEST POSITION WITH WHEELS LOCKED AND ALARM ON. CALL LIGHT WITHIN REACH. REPORT GIVEN TO ONCOMING RN.
--- NOTE | 2021-06-16 17:35 | NUR ---
PATIENT IS PLEASENTLY CONFUSED AND ALERT AND ORIENTATED 2-3X. PATIENT HAS BEEN RESTING COMFORTABLY ALL SHIFT. PATIENT TOOK MEDICATIONS WITH WATER WELL AND ATE BETTER THIS SHIFT. PATIENT IS IN ISOLATION FOR CDIFF AND HAS HAD NO LOOSE STOOLS THIS SHIFT. UPDATE WAS GIVEN TO DAUGHTER VIA PHONE. WILL MONITOR UNTIL SHIFT CHANGE.
--- NOTE | 2021-06-17 08:21 | NUR ---
SHIFT SUMMARY: AOX2, FORGETFUL. COOPERATIVE. WOUND VAC DRESSING REMAINED INTACT BUT HAS PUSHED UP CAUSING SOME CREASES THAT HAVE BROKEN DOWN THE SKIN ON THE OTHER BUTTOCKS LEAVING OPEN WOUND. DRESSING APPLIED OVER TEMPORARY AND ASKED DAYSHIFT IF SHE COULD DO DRESSING CHANGED. ALSO NOTED DIAPER RUB HAS CAUSED WOUND TO DEVELOP ON THE MEDIAL SIDE OF THE LEFT THIGH. BS-94. CATHETER HAD PLUGGED THEREFORE, IT WAS FLUSHED TWICE FOR BETTER FLOW. SLEPT WELL T/O THE NIGHT, USES CALL LIGHT APPROPRIATLY. BED ALARM ON.
--- NOTE | 2021-06-17 11:17 | NUR ---
PATIENT ALERT AND ORIENTED X2-3. FORGETFUL. COOPERATIVE AND CALM. PERRLA. ABLE TO MOVE ALL EXTREMITIES. VERY WEAK. WORKING WITH PT THIS AM. ABLE TO SIT ON EDGE OF BED. ON ROOM AIR, LUNGS SOUNDING CLEAR. DENIES CHEST PAIN/PRESSURE. BP ELEVATED THIS AM. HR 60-70'S. DENIES ABDOMINAL PAIN/NAUSEA. ATTENDS IN PLACE. GRIFFITHS CATH DRAINING EMELIA URINE TO GRAVITY. WOUND VAC IN PLACE AND SET TO 80MMHG. NO DRAINAGE NOTED AT THIS TIME. SKIN OVERALL FRAGILE AND PALE. POOR APPEATITE. ABLE TO TAKE MEDS WHOLE WITH WATER. SLEEPING AT THIS TIME. WILL CONTINUE TO MONITOR.
--- NOTE | 2021-06-17 18:28 | NUR ---
SHIFT SUMMARY: PATIENT REMAINS ALERT AND ORIENTED X2-3. FAMILY IN TO SEE PATIENT WHICH LIFTED SPIRITS. REMAINS ON ROOM AIR. VITAL SIGNS STABLE. BP IMPORVED FROM THIS AM. TAKING PILLS WHOLE WITH WATER. POOR APPEATITE. Q2 TURNING AND NEEDED. WOUND VAC REMAINS AT 80 MMHG. MEPILEX PLACED ON BOTTOM WHERE WOUND VAC IS RUBBING AND ON RIGHT GROIN. ATTENDS IN PLACE. GRIFFITHS CATH DRAINING EMELIA URINE OUTPUT. DENIES NEEDS AT THIS TIME. CALL LIGHT IN REACH. PATIENT WANTING TO SLEEP POST DINNER. WILL CONTINUE TO MONITOR AND REPORT OFF.
--- NOTE | 2021-06-18 05:41 | NUR ---
SHIFT SUMMARY NO ACUTE CHANGES TO REPORT THIS SHIFT. PT HAS SLEPT OFF AND ON T/O SHIFT. PT IS CONFUSED AND VERY FORGETFUL. SHE DOES NOT USE CALL LIGHT AND YELLS OUT WHEN NEEDING ASSISTANCE. PT COULD NOT REMEMBER WHY SHE WAS IN THE HOSPITAL AND WAS REQUESTING TO LEAVE. PT IS EASY TO REDIRECT, AND IS COMPLIANT WHEN REORIENTED. VITALS ARE STABLE. PO VANCO CONTINUED FOR CDIFF INFECTION. NO LOOSE STOOLS THIS SHIFT. WOUND VAC IN PLACE AND IS PATENT AND DRAINING. BED IN LOWEST POSITION, CALL LIGHT WITHIN REACH.
--- NOTE | 2021-06-18 17:58 | NUR ---
SHIFT SUMMARY PT ATOX1; HAS DIMENTIA AND CONFUSED AT TIMES. PT HAS WOUND VAC PLACED ON HER BUTTOCKS, DRAINING. PT REPOSITION Q2. PT ALSO HAS MEPELEX INTACT ON HER R SIDE OF BUTTOCKS AREA; SEE PIC. PT DENIES CP OR ANY PAIN. AWAITS PLACEMENT. BED ALARM IS ON AND CALL LIGHT WITHIN REACH
[2021-06-19 04:43] LABS: Hemoglobin 9.7 g/dL (11.5-16.0); Mean Corpuscular HGB 30.7 pg (26.0-34.0); Mean Corpuscular HGB Conc 32.3 g/dL (31.5-36.5); Mean Corpuscular Volume 95 fL (80-100); Mean Platelet Volume 9.1 fL (9.1-12.4); Platelet Count 365 K/mm3 (150-400); RDW Coefficient Variation 13.3 % (11.7-14.2); RDW Standard Deviation 46.4 fL (35.1-46.3); Red Blood Cell Count 3.16 M/mm3 (3.80-5.20); White Blood Cell Count 11.15 K/mm3 (4.00-11.30)
--- NOTE | 2021-06-19 05:16 | NUR ---
SHIFT SUMMARY NO ACUTE CHANGES TO REPORT THIS SHIFT. PT HAS NOT HAD ANY LOOSE STOOLS THIS SHIFT. STILL BEING TREATED AT THIS TIME FOR CDIFF INFECTION WITH PO VANCO. WOUND VAC IN PLACE TO COCCYX WOUND AND IS DRAINING, MINIMAL OUTPUT. VITALS STABLE. PT A/OX2, PT CONFUSED AND VERY FORGETFUL. PT OVERALL SLEPT WELL THIS SHIFT AND WAS LESS ANXIOUS THAN THE NIGHT BEFORE. BED IN LOWEST POSITION, CALL LIGHT WITHIN REACH.
[2021-06-19 06:13] LABS: Anion Gap 8 mmol/L (6-16); Blood Urea Nitrogen 14 mg/dL (8-24); Bun/Creatinine Ratio 39.8 (12.0-20.0); CO2, Blood 27 mmol/L (21-32); Calcium, Blood 8.9 mg/dL (8.5-10.1); Chloride, Blood 99 mmol/L (98-108); Creatinine, Blood 0.35 mg/dL (0.40-1.00); Glomerular Filtration Rate >60 (60-); Glucose, Blood 73 mg/dL (70-99); Potassium, Blood 3.9 mmol/L (3.5-5.5); Sodium, Blood 134 mmol/L (136-145)
--- NOTE | 2021-06-19 17:22 | NUR ---
SHIFT SUMMARY PT AOX1; VERY CONFUSED, SON NERY WAS AT BEDSIDE TODAY. PLACED A RECTAL TUBE TODAY PER DR BECAUSE THE WOUND VAC GET ALWAYS SOAKED WITH C-DIFF DIARRHEA. PT HAD COUPLE OF LARGE BM TODAY. CHANGED THE WOUND VAC DRESSING TODAY, SUCTION TO 80. MEDICATED THE PT FOR PAIN/. BED IS IN THE LOWEST POSITION AND CALL LIGHT WITHIN REACH
[2021-06-20 04:36] LABS: Hematocrit 32.8 % (33.0-51.0); Hemoglobin 10.8 g/dL (11.5-16.0); Mean Corpuscular HGB 30.3 pg (26.0-34.0); Mean Corpuscular HGB Conc 32.9 g/dL (31.5-36.5); Mean Corpuscular Volume 92 fL (80-100); Mean Platelet Volume 9.4 fL (9.1-12.4); Platelet Count 301 K/mm3 (150-400); RDW Coefficient Variation 13.3 % (11.7-14.2); RDW Standard Deviation 45.1 fL (35.1-46.3); Red Blood Cell Count 3.56 M/mm3 (3.80-5.20)
[2021-06-20 05:19] LABS: Anion Gap 9 mmol/L (6-16); Blood Urea Nitrogen 15 mg/dL (8-24); CO2, Blood 26 mmol/L (21-32); Calcium, Blood 9.5 mg/dL (8.5-10.1); Chloride, Blood 100 mmol/L (98-108); Creatinine, Blood 0.33 mg/dL (0.40-1.00); Glomerular Filtration Rate >60 (60-); Glucose, Blood 86 mg/dL (70-99); Magnesium, Blood 1.8 mg/dL (1.6-2.4); Potassium, Blood 3.6 mmol/L (3.5-5.5); Sodium, Blood 135 mmol/L (136-145)
--- NOTE | 2021-06-20 17:12 | NUR ---
SHIFT SUMMARY PT AxOx3-4 WITH INTERMITTENT CONFUSION. PT PLEASANT AND COOPERATIVE WITH CARE. PT REPORTED PAIN IN ABDOMEN TODAY. MEDICATED PER EMAR. RECTAL TUBE AND GRIFFITHS CATHETER DRAINING PATENT. BM OUTPUT DECREASED. WOUND VAC IN PLACE WITH SUCTION ON COCCYX. PICS IN CHART. PT/OT WORKED WITH PATIENT TODAY. ON BEDREST, WHEELCHAIR BOUND AT BASELINE. FAMILY IN ROOM TODAY, UPDATED ON PLAN. CURRENTLY WAITING SNF PLACEMENT. PT IS RESTING IN BED SITTING UP, DENIES ANY NEEDS AT THIS TIME. CALL LIGHT IN REACH.
--- NOTE | 2021-06-21 05:05 | NUR ---
SHIFT SUMMARY NO ACUTE CHANGES THIS SHIFT. AOX2. PLEASENTLY CONFUSED. HX DEMENTIA. ABLE TO FOLLOW DIRECTIONS. REPORTS 12/10 PAIN L ARM & KNEE, MEDICATED 1X c ROXICODONE & REPOSITIONED. VSS. GRIFFITHS PATENT & DRAINING. RECTAL TUBE PATENT. WOUND VAC DRESSING ON COCCYX C/D/I. AWAITING SNF PLACEMENT. CALL LIGHT IN REACH.
--- NOTE | 2021-06-21 17:29 | NUR ---
SHIFT SUMMARY PATIENT IS ALERT AND ORIENTED TO SELF ONLY. PATIENT HAS FOCUSED ON RANDOM NONSENSICAL FIXATIONS MOST OF THE DAY. RECTAL TUBE AND GRIFFITHS ARE DRAINING TO GRAVITY. PATIENT HAS REPORTED NO SOB, NAUSEA, PAIN OR VOMITTING THIS SHIFT. NO ACUTE EVENTS THIS SHIFT. VITAL SIGNS REVIEWED. WILL MONITOR UNTIL SHIFT CHANGE.
--- NOTE | 2021-06-21 17:34 | NUR ---
Received word from PT today; pt is no longer able to meaninfully participate in therapy. Her appetite is poor, and she has multiple co-morbidities. Attempted to call pt's daughter Sarah, left message with return phone number. Hopeful to connect with her tomorrow to open up a conversation regarding goals of care.
--- NOTE | 2021-06-22 05:26 | NUR ---
PATIENT IS A&0 X 3. RECTAL TUBE AND GRIFFITHS CATHETER ARE BOTH IN PLACE AND DRAINING. SOME COMPLAINTS OF PAIN TODAY. HX OF DEMENTIA AND PARKINSONS. WOUND VAC BEING USED FOR ADVANCED COCCYX WOUND. DAY 9 POST-DEBRIDEMENT. C.DIFF +.
--- NOTE | 2021-06-22 12:03 | NUR ---
Care conference with pt's son and daughter regarding pt's continued decline in health. The patient had initially planned to return to [place], but it is becoming clear this is no longer an option for her due to increased weakness and decrease in cognition. Family requests Palliative Care RN have a conversation with pt regarding goals of care. Plan to see pt today; will update.
--- NOTE | 2021-06-22 15:26 | NUR ---
Received permission for pt to have visitors, both son and daughter, and they are welcome anytime, as we are pursuing hospice for the patient, and she is also an exception as she has been hospitalized since 05/14/21 and during that time has begun to express feelings of hopelessness and depression. Her overall condition is declining, and PT wondering if she is reaching end stage of Parkinson's disease. She is no longer eating more than "bites". Will continue to monitor, and the goal is to get pt placed into the community if she can't go back to [place]. And returning to [place] appears more unlikely everyday.
--- NOTE | 2021-06-22 17:27 | NUR ---
PATIENT IS ASLEEPT. RECTAL TUBE, GRIFFITHS AND WOUND VAC IN USE. PATIENT MEDICATED PER [facility] FOR C/O PAIN. VS STABLE. PALLIATIVE CARE WAS IN TO VISIT WITH THE PATIENT. CARE MANAGEMENT IS WORKING ON A SAFE DISCHARGE PLAN. WILL CONTINUE TO MONITOR.
--- NOTE | 2021-06-23 04:10 | NUR ---
CNA HHA SUMMARY AWAKE AT SHIFT COMMENCE, COMPLIANT WITH MEDS AND TREATMENTS. AFFECT CHEERFUL WHEN ASSESSED. WOUND VAC IN USE TO WOUND OF COCCYX. ABLE TO ASSIST WITH REPOSITIONING. HAS BEEN RESTING QUIETLY WITH FEW INTERRUPTIONS OTHER THAN PAIN MEDS AND REPOSITIONING THROUGH OUT SHIFT. RESTING QUIETLY AT THIS TIME. CALL LIGHT IN REACH. ISOLATION PRECAUTIONS AMINTAINED. PO VANCO ADMIN ORDERED.
--- NOTE | 2021-06-23 17:02 | NUR ---
APPROX 3-4 CC CLOUDY URINE OBTAINED FROM CATHETER AFTER WAITING ABOUT 15 MINUTES AFTER CATHETER INSERTION TO ALLOW MORE TIME TO FOR URINE TO COLLECT FOR UA PER PROTOCOL FOR NEW CATHETER INSERTION.
[2021-06-23 17:04] LABS: Source, Urine Foley catheter
--- NOTE | 2021-06-23 17:05 | NUR ---
PATIENT'S WOUND VAC AND GRIFFITHS WERE CHANGED. SHE HAD AN EPISODE OF VOMITTING RELIEVED WITH MEDICATION. RECTAL TUBE REMAINS INTACT WITH SCANT AMOUNT BROWNISH YELLOW LIQUID STOOL. FLAT AFFECT NOTED. STARTED THE DAY OFF BEING VERY DROWSY AND RELUCTANT TO COOPERATE WITH SOME CARE BUT AFTER A FLUID BOLUS AND TIME SHE IMPROVED TO SPEND TIME ON HER HOME TRYING TO MAKE CALLS AND BECAME MORE PLEASANT. SHE VOICED WANTING TO HAVE A CERTAIN VISITOR BUT WENT ON TO SAY HE IS HOSPITALIZED OUT OF STATE SO IT'S NOT POSSIBLE. WILL MONITOR.
[2021-06-23 17:12] LABS: Appearance, Urine Turbid (Clear); Bilirubin, Urine Neg (Neg); Blood, Urine 5+ (Neg); Color, Urine Yellow (P-Yellow); Glucose Qualitative, Urine Neg (Neg); Ketones, Urine 1+ (Neg); Leukocyte Esterase, Urine 3+ (Neg); Nitrite, Urine Neg (Neg); Protein, Urine 3+ (Neg); Specific Gravity, Urine 1.015 (1.003-1.022); Urobilinogen, Urine NORM (Normal); pH, Urine 6.5 (5.0-8.0)
[2021-06-23 17:29] LABS: Bacteria Many /hpf; Red Blood Cells, Urine 50-100 /hpf (0-2); Squamous Epithelial Cells Few /hpf (Few)
[2021-06-23 17:30] LABS: Amorphous Light (0-Heavy); Mucus Light (0-Heavy); Yeast/Fungi Urine Few /hpf
--- NOTE | 2021-06-24 06:30 | NUR ---
PT RESTING IN BED. NO ACUTE CHANGES THIS SHIFT. GRIFFITHS, RECTAL TUBE, AND WOUND VAC IN PLACE. NO INTAKE THIS SHIFT, PT SLEPT MOST OF SHIFT. CONTINUE PLAN OF CARE.
--- NOTE | 2021-06-24 12:30 | NUR ---
FAMILY HERE FOR A MEETING WITH PATIENT AND PALLIATIVE CARE.
--- NOTE | 2021-06-24 13:10 | NUR ---
SPOKE WITH PATIENT'S DAUGHTER, JHONY VIA PHONE @[phone]. SHE WAS INQUIRING IF A MEETING WITH PALLIATIVE CARE WOULD STILL BE HELD TODAY. SPOKE WITH PALLIATIVE CARE NURSE WHO WAS GOING TO REACH OUT TO [facility]GENY MIRELES. UPDATED DAUGHTER ON PATIENT'S STATUS.
--- NOTE | 2021-06-24 16:45 | NUR ---
Met with pt and her 2 children today. They are both pleasant and have realistic goals about pt's current health status. Pt was extremely happy to visit them today. Discussion had on d/c to [facility] terminal supervisor care facility; either here in [place] if patient is unable to tolerate being up and about for several hours, and if she is she will go to [place] to live comfortably. Dr. Laurent also spoke with pt's daughter today and she reiterated the plan to Dr. Laurent. Will remain available.
--- NOTE | 2021-06-24 17:26 | NUR ---
PATIENT HAD A LONG VISIT WITH TWO OF HER CHILDREN AND THE PALLIATIVE CARE NURSE TODAY. SHE HAS VERY DECREASED FOOD INTAKE AND VERY LITTLE PO INTAKE EVEN WITH ENCOURAGEMENT. INFORMED. GRIFFITHS INTACT WITH LITTLE URINE OUTPUT. RECTAL TUBE IN PLACE. WOUND VAC INTACT AT 80 MM HG. MD WOULD LIKE PATIENT TO BE SAT UP WITH THERAPY TOMORROW AND COORDINATED SO THAT IT CAN BE DONE WHEN HER CHILDREN WILL BE HERE SO THEY CAN SEE IF IT CAN BE SIMILATED TO SEE IF SHE CAN MAKE THE PLANE FLIGHT TO [place] LIKE SHE AND HER FAMILY WOULD LIKE FOR HER TO BE ABLE TO DO. MD STATED SHE FEELS THE PATIENT IS MORE OF A HOSPICE CANDIDATE THAN A HOME HEALTH ONE. MD INFORMED OF UA RESULTS FROM YESTERDAY WHEN GRIFFITHS WAS REPLACED AT THE TIME THE WOUND VAC DRESSING WAS CHANGED. SHE REFUSED DOSES OF PO LIQUICEL. FLAT AFFECT. MEDICATED ONCE FOR PAIN PER E-MAR. OFFERED A COUPLE OF OTHER TIMES BUT PATIENT DENIED WANTING MEDICATION. WILL MONITOR.
--- NOTE | 2021-06-25 03:49 | NUR ---
SHIFT SUMMARY PATIENT HAD NO ACUTE CHANGES OBSERVED. AXOX 2 WITH CONFUSION AT TIMES. REPEATS QUESTIONS ALREADY ANSWERED. BEDREST. PIV REMAINS INTACT. D5 NS INFUSING AT 100 mL/HR. RECTAL TUBE DISPLACED THIS SHIFT. WOUND VAC IN PLACE AND DRAINING. ORAL VANCO GIVEN PER EMAR. VSS/AFEBRILE. DENIES PAIN, SOB, AND N/V. CALL LIGHT IN REACH. BED IN LOWEST POSITION. WILL CONTINUE TO MONITOR UNTIL DAY SHIFT NURSE ASSUMES CARE.
--- NOTE | 2021-06-25 15:33 | NUR ---
Pt's children came in today,to see how well pt can tolerate being up in w/c out of bed for even 2 hours. This was a request by Dr. Laurent, to try and assess pt's stamina. The family are thinking about taking pt back to [place] to live out her days, but it depends on pt's ability to make the trip. The back up plan is for pt to find a local shelter care facility and to begin hospice, whether here or [place].
--- NOTE | 2021-06-25 19:09 | NUR ---
SHIFT SUMMARY PT AXO TO SELF, BIRTHDAY, FAMILY AND FOLLOWING DIRECTIONS THOUGH FORGETFUL. PT COMPLAINED OF PAIN, MEDICATED PER EMAR. WOUND VAC DRESSING CHANGED THIS SHIFT R/T STOOL SOILING. RECTAL TUBE REPLACED. LITTLE TO NO OUTPUT OF URINE AND STOOL SINCE REPLACEMENT OF RECTAL TUBE. FAMILY PRESENT IN ROOM WHEN NURSE AND CHARGE ATTEMPTED TO GET PATIENT UP TO CHAIR. PT TOO DECONDITIONED AND FRAIL TO ASSIST AND SO ATTEMPT WAS DC'D. VSS. BED IN LOW POSITION, CALL LIGHT WITHIN REACH. IV PATENT AND INFUSING PER EMAR.
--- NOTE | 2021-06-26 03:34 | NUR ---
SHIFT SUMMARY PATIENT HAD NO ACUTE CHANGES OBSERVED. AXOX 2 WITH CONFUSION. HX PARKINSON. GRIFFITHS AND RECTAL TUBE IN PLACE. WOUND VAC INTACT. PIV REMAINS INTACT. D5 NS INFUSING AT 100mL/HR. REPORTED COCCYX PAIN X ONE AND OXYCODONE 5 MG GIVEN PER EMAR. PATIENT ABLE TO SLEEP. ORAL VANCO GIVEN PER EMAR. VSS/AFEBRILE. DENIES SOB AND N/V. SLEPT MOST OF SHIFT. CALL LIGHT IN REACH. BED IN LOWEST POSITION. WILL CONTINUE TO MONITOR UNTIL DAY SHIFT NURSE ASSUMES CARE.
[2021-06-26 05:17] LABS: Anion Gap 9 mmol/L (6-16); Blood Urea Nitrogen 13 mg/dL (8-24); Bun/Creatinine Ratio 38.9 (12.0-20.0); CO2, Blood 26 mmol/L (21-32); Calcium, Blood 8.5 mg/dL (8.5-10.1); Chloride, Blood 101 mmol/L (98-108); Creatinine, Blood 0.33 mg/dL (0.40-1.00); Glomerular Filtration Rate >60 (60-); Glucose, Blood 150 mg/dL (70-99); Prealbumin, Blood 8.7 mg/dL (20.0-40.0); Sodium, Blood 136 mmol/L (136-145)
--- NOTE | 2021-06-26 10:40 | NUR ---
PATIENT ALERT AND ORIENTED X2. ASKING SAME QUESTIONS MULTIPLE TIMES. INTERMITTENT CONFUSION. DENIES NUMBNESS/TINGLING. PERRLA. ABLE TO MOVE ALL EXTREMITIES. Q2 TURNING AND NEEDED. OVERALL VERY WEAK. ON ROOM AIR SATING ABOVE 94%. DENIES SOB. OCCASIONAL WEAK COUGH. NO TELE. BP ELEVATED THIS AM, MEDICATED FOR PAIN AND UPON BP RECHECK, WNL. DENIES CHEST PAIN/PRESSURE. DENIES ABDOMINAL PAIN/NAUSEA. EATING VERY LITTLE. DRINKING WATER. TAKING PILLS WHOLE. RECTAL TUBE IN PLACE STARTING TO DRAIN PASTY BROWN STOOL. GRIFFITHS CATH IN PLACE DRAINING CLEAR/YELLOW URINE TO GRAVITY. WOUND VAC TO COCCYX AT 80 MMHG. CHANGED YESTERDAY DAY SHIFT. D5 NS INFUSING AT 100 ML/HR. MORNING BLOOD SUGAR WNL. WILL CONTINUE TO MONITOR.
--- NOTE | 2021-06-26 12:36 | NUR ---
Spoke to pt's daughter at length today. She states yesterday they realized pt lacks to stayuma to make any trip to [place], and they would like to find local care home placement, as well as get pt signed up for hospice services upon discharge. For now, the patient will be going to comfort care, and Care Management will begin to look for placement.
--- NOTE | 2021-06-26 12:55 | NUR ---
UPDATE: DR. RUDOLPH IN TO ASSESS PATIENT. NEW ORDERS FOR PO POTASSIUM AND TO REMOVE RECTAL TUBE. RECTAL TUBE REMOVED. 2ND RN IN TO ASSESS WOUND VAC, WOUND VAC SEALED AND WNL. CALL FROM PALLIATIVE CARE. PLAN TO TRANSITION TO COMFORT CARE TODAY. Q2 TURNING AND NEEDED CONTINUES. PATIENT NOT INTERESTED IN EATING LUNCH. IV FLUIDS DISCONTINUED. WILL CONTINUE TO MONITOR.
--- NOTE | 2021-06-26 15:42 | NUR ---
UPDATE: PATIENT TRANSITIONED TO COMFORT CARE. ALL ORDERS IN PLACE. DAUGHTER AT BEDSIDE. PATIENT DENIES PAIN AT THIS TIME. SLEEPING ON AND OFF. WILL CONTINUE TO MONITOR.
--- NOTE | 2021-06-26 17:40 | NUR ---
SHIFT SUMMARY: NO ACUTE CHANGES. SEE PREVIOUS NOTES. SLEEPING ON AND OFF. REPOSITIONING Q2 AND PATIENT REQUESTS. REMAINS ON ROOM AIR. NO CHANGES IN NEURO. COMPLAINS OF PAIN IN COCCYX AND BACK. MEDICATED PER EMAR. NOT EATING MUCH. DRINKING WATER AND ENSURE. GRIFFITHS CATH REMAINS IN PLACE DRAINING CLEAR/YELLOW URINE. WILL CONTINUE TO MONITOR AND REPORT OFF.
--- NOTE | 2021-06-26 20:43 | NUR ---
RESTING QUIETLY. CALL LIGHT IN REACH
--- NOTE | 2021-06-26 20:44 | NUR ---
AWAKENED WHEN NURSE SPOKE HER NAME. REFUSED FOOD BUT REQUESED AND ACCEPTED DRINK OF "ICE WATER". CALL LIGHT IN REACH
--- NOTE | 2021-06-26 22:31 | NUR ---
RESTING QUIETLY. NO NOTED S/S ACTE PHYSICAL DISTRESS. CALL LIGHT IN REACH
--- NOTE | 2021-06-27 00:13 | NUR ---
RESTING QUIETLY. REPOSITIONED FOR COMFORT. CALL LIGHT IN REACH
--- NOTE | 2021-06-27 02:44 | NUR ---
RESTING QUIETLY. HOB REMAINS ELEVATED. CALL LIGHT IN REACH
--- NOTE | 2021-06-27 03:58 | NUR ---
SHARE HOLDER SUMMARY REMAINS ON COMFORT CARE. TOLERATING SMALL AMTS OF WATER BUT REFUSED ANY FOOD. HAS BEEN RESTING QUIETLY WITH HOB ELEVATED FOR EASER BREATHING. CALL LIGHT IN REACH. WOUND VAC IN USE. NO NOTED S/S ACUTE DISTRESS AT THIS TIME.
--- NOTE | 2021-06-27 05:48 | NUR ---
CONTINUES TO RST QUIETLY. NO NOTED S/S AUTE DISTRESS. CALL LIGHT IN REACH
--- NOTE | 2021-06-27 16:30 | NUR ---
SHIFT SUMMARY PATIENT IS ALERT AND ORIENTATED TO SELF ONLY. PATIENT HAS TOLERATED SMALL AMOUNTS OF WATER AND ONLY A FEW BITES OF FOOD TODAY. PATIENT HAS BEEN RESTING MOST OF SHIFT. PATIENTS FAMILY VISITED FOR AN HOUR TODAY. NO ACUTE EVENTS THIS SHIFT. WOUND VAC IS STILL IN PLACE. GRIFFITHS IS DRAINING TO GRAVITY. NO SIGNS OR SYMPTOMS OF DISTRESS OR DISCOMFORT. BED IN LOWEST POSITION. CALL LIGHT IN PLACE. WILL MONITOR UNTIL SHIFT CHANGE.
--- NOTE | 2021-06-27 21:31 | NUR ---
AWAKE. WAS MEDICATED FOR PAIN EARLIER. PT VOICED CONCERNS RE WHY SHE WSA HERE. WANTED TO TALK WITH THE MD. WILL HAVE AM RN SET UP MEETING WITH MD. CALL LIGHT IN REACH
--- NOTE | 2021-06-27 21:33 | NUR ---
AWAKE. ASSISTED WITH EATING A FEW BITES OF DINNER A WHILE AGO. TALKATIVE. CALL LIGHT IN REACH
--- NOTE | 2021-06-27 23:40 | NUR ---
RESTING QUIETLY WITH HOB EEVATED. CALL LIGHT IN REACH
--- NOTE | 2021-06-28 01:28 | NUR ---
RESTING QUIETLY. NO NOTED ACUTE DISTRESS
--- NOTE | 2021-06-28 03:15 | NUR ---
CONTINUES TO REST QUIETLY. NO NOTED ACUTE DISTRESS. CALL LIGHT IN REACH.
--- NOTE | 2021-06-28 04:40 | NUR ---
FIELD ARTILLERY CREWMEMBER SUMMARY REMAINS ON COMFORT CARE. AT SH9IFT COMMENCE TOLERATED A FEW BITES OF DINNER AND SOME WATER. ORAL PAIN MEDS X 1. CURRENTLY RESTING QUIETLY. WOUND VAC IN USE. GRIFFITHS DRAINING. CALL LIGHT INE REACH
--- NOTE | 2021-06-28 05:23 | NUR ---
CONTINUES TO REST QUIETLY. CALL LIGHT IN REACH
--- NOTE | 2021-06-28 06:20 | NUR ---
REPOSITIONED. BACKRUB GIVEN. GRIFFITHS EMPTIED. ATTENDS CHANGED. FLUIDS GIVEN
--- NOTE | 2021-06-28 18:19 | NUR ---
SHIFT SUMMARY: ON COMFORT CARE. IS PAINFUL WITH MOVEMENT. MEDICATED PER EMAR. SLEEPING MOST OF THE SHIFT. DID NOT EAT ANYTHING TODAY, TAKING SIPS OF WATER WITH ASSISTANCE. NO PO MEDS GIVEN, TOO SLEEPY TO SWALLOW SAFELY. SON AND FRIEND VISITED TODAY.
--- NOTE | 2021-06-29 03:56 | NUR ---
SHIFT SUMMARY PATIENT ON COMFORT CARE. PO MEDICATIONS HELD FOR BEING SOMNOLENT T/O SHIFT. DENIES PAIN, SOB, AND N/V. PIV REMAINS INTACT. WOUND VAC IN PLACE. GRIFFITHS PATENT AND DRAINING TO GRAVITY. NO SIGNS SYMPTOMS OF DISTRESS OR DISCOMFORT. CALL LIGHT IN REACH. BED IN LOWEST POSITION AND ALARM ACTIVATED. WILL CONTINUE TO MONITOR UNTIL DAY SHIFT NURSE ASSUMES CARE.
--- NOTE | 2021-06-29 16:57 | NUR ---
Pt is no longer on a wound vac and rectul tub removed as well, as the C-diff has resolved. She is taking pain medication as needed. Family visiting often. Ynes is much happier at this time. Care management attempting to find placement for the patient.
--- NOTE | 2021-06-29 18:20 | NUR ---
SHIFT SUMMARY: ON COMFORT CARE. WAS AWAKE THIS MORNING, REPEATING "HELP ME" OVER AND OVER; MEDICATED WITH ROXICODONE AND ATIVAN WHICH HELPED CALM HER AND SHE SLEPT THE REST OF THE DAY. SHE AWAKENED JUST LONG ENOUGH TO TAKE SOME SIPS OF WATER BUT DID NOT EAT AT ALL. WOUND VAC DRESSING NOT CHANGED CATALINA BECOMES VERY PAINFUL AND TEARFUL WITH TOO MUCH MOVEMENT. IV REMOVED IT IS NOT NEEDED. URINE OUTPUT HAS DECLINED. DID NOT HAVE VISITORS TODAY.
--- NOTE | 2021-06-30 03:25 | NUR ---
SHIFT SUMMARY PATIENT ON COMFORT CARE AND BEDREST. AXO X 2 ON ROOM AIR. GRIFFITHS PATENT AND DRAINING MINIMAL OUTPUT. WOUND VAC IN PLACE. DENIES PAIN, SOB, AND N/V. NO S/SX OF DISTRESS OR DISCOMFORT. CALL LIGHT IN REACH. BED IN LOWEST POSITION WITH BED ALARM ON. WILL CONTINUE TO MONITOR UNTIL DAY SHIFT NURSE ASSUMES CARE.
--- NOTE | 2021-06-30 09:36 | NUR ---
UPON ASSESSMENT AT 0855, PATIENT ABLE TO SAY A FEW WORDS TO QUESTIONS ASKED. MOSTLY NON COHERENT. EYES OPEN. WOUND VAC INTACT TO SACRAL AREA WOUND AT 80 MM HG. GRIFFITHS INTACT WITH APPROX 400 CC URINE NOTED. ATTENDS INTACT. SEE COMFORT CARE ASSESSMENT. WILL MONITOR.
--- NOTE | 2021-06-30 10:47 | NUR ---
RESTING QUIETLY WITH EYES CLOSED. RESPIRATION EVEN AND UNLABORED. NO RATTLING OF SECRETIONS NOTED. WILL MONITOR.
--- NOTE | 2021-06-30 12:08 | NUR ---
MEDICATED AT 1200 WITH OXYCODONE HCL 20 MG SL PREMEDICATION FOR PATIENT TO BE TURNED. HOB ELEVATED TO ADMINISTER MEDICATION PATIENT DID BEGIN TO MOAN. IT WAS LOWERED AFTER MEDICATION GIVEN. HAVING SCANNING ISSUES WITH Rethink WITH THIS MEDICATION. YASIR LYNN CHARGE NURSE IS AWARE.
--- NOTE | 2021-06-30 14:54 | NUR ---
UPDATED THE [facility] ON PATIENT'S STATUS. PATIENT'S SON IN LAW HERE TOO BUT OUT OF THE ROOM AT THE TIME. PATIENT LYING CALMLY WITH EYES OPEN. NO DISTRESS NOTED. WILL MONITOR.
--- NOTE | 2021-06-30 15:49 | NUR ---
PREMEDICATED FOR PAIN FOR RUG HOOKER'S TO REPOSITION PATIENT. NO FAMILY/VISITORS AT BEDSIDE CURRENTLY. SLEEPING. NO LABORED BREATHING, ANXIETY OR GURLING NOTED. WILL MONITOR.
--- NOTE | 2021-06-30 16:28 | NUR ---
@ 1610, CHECKED ON PATIENT. A FRIEND IS IN THE ROOM VISITING. PATIENT HAS EYES OPEN. NO RESPIRATORY DISTRESS, ANXIETY, GURGLING, GRIMACING OR MOANING NOTED. WILL MONITOR.
--- NOTE | 2021-06-30 16:42 | NUR ---
PATIENT HAS SLEPT THE MAJORITY OF THE DAY. SHE WAS SEEN WITH HER EYES OPEN WHEN FAMILY AND A FRIEND/FORMER COWORKER WERE IN THE ROOM. PREMEDICATED X 2 FOR PAIN PRIOR TO WET MACHINE CUTTER REPOSITIONING/HYGIENE CARE WITH PATIENT. RESPIRATIONS EVEN AND UNLABORED. NO GRIMACING, MOANING, SECRETIONS, GURGLING NOTED. WOUND VAC AT 80 MM HG AND GRIFFITHS CATHETER INTACT. WILL MONITOR.
--- NOTE | 2021-06-30 17:40 | NUR ---
Pt has done well by transitioning to comfort care. She continues to sleep often, but less c/o pain and more interactive when she does have visitors. She is pleasant today; awakens easily. No changes to care plan needed at this time.
--- NOTE | 2021-06-30 18:02 | NUR ---
RESTING QUIETLY WITH EYES CLOSED SUPINE. RESPIRATIONS EVEN AND UNLABORED. NO GRIMACING, MOANING, SECRETIONS OR GURGLING NOTED. WILL MONITOR. GRIFFITHS AND WOUND VAC INTACT.
--- NOTE | 2021-06-30 22:30 | NUR ---
WOUND VAC WITH INTACT SUCTION TO SACRAL WOUND SITE. MINIMAL PINK/SEROUS COLORED DRAINAGE
--- NOTE | 2021-07-01 08:34 | NUR ---
@ 0736, PATIENT ASLEEP. RESPIRATIONS EVEN AND UNLABORED. GRIFFITHS INTACT WITH 300 CC YELLOW URINE NOTED. WOUND VAC INTACT AT 80 MM HG TO SACRAL WOUND. NO GRIMACING, MOANING, SECRETIONS OR GIRGLING NOTED. WILL MONITOR.
--- NOTE | 2021-07-01 10:00 | NUR ---
RESTING WITH EYES CLOSED. RESPIRATIONS EVEN AND UNLABORED. NO GRIMACING, MOANING, GURGLING, ANXIETY OR SECRETIONS NOTED. ORAL CARE DONE EARLIER PER CONSTRUCTION EXECUTIVE. WILL MONITOR.
--- NOTE | 2021-07-01 10:59 | NUR ---
PATIENT NOTED WITH EYES OPEN WHEN CHECKING IN ON HER. MEDICATED FOR C/O PAIN TO HER "WHOLE BODY". SEE EMAR. TOLERATED PO SIPS OF WATER.
--- NOTE | 2021-07-01 11:40 | NUR ---
PATIENT AWAKE WITH EYES OPEN. ORAL CARE IN PROGRESS PER LIBRARY SCIENCE INSTRUCTOR. RESPIRATIONS EVEN AND UNLABORED. NO SECRETIONS, FACIAL GRIMACING, GURGLING OR ANXIETY NOTED. GRIFFITHS AND WOUND VAC INTACT. WILL MONITOR.
--- NOTE | 2021-07-01 14:22 | NUR ---
PATIENT RESTING WITH EYES CLOSED. RESPIRATIONS EVEN AND UNLABORED. NO MOANING, GRUNTING, GURGLING OR SECRETIONS NOTED. WILL MONITOR.
--- NOTE | 2021-07-01 15:37 | NUR ---
PATIENT RESTING QUIETLY WITH EYES CLOSED. RESPIRATIONS EVEN AND UNLABORED. NO GRIMACING, MOANING, GURGLING OR SECRETIONS NOTED. WILL MONITOR.
--- NOTE | 2021-07-01 16:41 | NUR ---
PATIENT HAS ONLY BEEN MEDICATED FOR PAIN X 1 THIS SHIFT. SHE HAS BEEN RESTFULLY SLEEPING EVERYTIME RN WAS IN THE ROOM. TOLERATED SOME WATER. GRIFFITHS WITH YELLOW URINE AND WOUND VAC INTACT. RESPIRATIONS EVEN AND UNLABORED. NO GRUNTING, MOANING, GURGLING OR SECRETIONS NOTED. WILL MONITOR.
--- NOTE | 2021-07-01 18:21 | NUR ---
RESTING QUIETLY WITH EYES CLOSED. RESPIRATIONS UNLABORED. NO GRIMACING, MOANING, GURGLING OR SECRETIONS NOTED. WILL MONITOR.
--- NOTE | 2021-07-01 20:26 | NUR ---
PATIENT IS RESTING QUIETLY IN BED. WOUND VAC INPLACE. GRIFFITHS WITH YELLOW URINE. NO SOB, NO EVIDENCE OF DISCOMFORT. WILL CONTINUE TO MONITOR.
--- NOTE | 2021-07-01 22:36 | NUR ---
PATIENT HAS BEEN SLEEPING, ORAL CARE AND SIPS OF WATER Q HOUR. PATIENT WAKES UP AND YELLS WHEN ATTEMPTING TO REPOSITION, ASKS TO NOT BE MOVED. PT MEDICATED WITH ROXICODONE. WILL MONITOR FOR COMFORT.
--- NOTE | 2021-07-02 06:06 | NUR ---
Rn summary: Patient opens eyes to verbal stimuli and touch. Pt verbalized x1 to not be moved. Pt was turned side to side slightly about q 2 hours. Wound vac remains intact to coccyx wound. Pt given sm sips of water q 2 hr, along with oral care. Pt continues to have barajas with yellow urine. No respiratory distress noted. Pt medicated x2 this shift for discomfort with turning with adequate relief. Continue to monitor and cares as needed.
--- NOTE | 2021-07-02 09:20 | NUR ---
@ 742, PATIENT SLEEPING WITH EYES CLOSED. RESPIRATIONS EVEN AND UNLABORED. GRIFFITHS INTACT WITH APPROX 50 CC YELLOW URINE NOTED. WOUND VAC INTACT AT 80 MM HG. NO GRIMACING, MOANING, SECRETIONS OR GURGLING NOTED. NO VISITORS AT BEDSIDE. WILL MONITOR.
--- NOTE | 2021-07-02 10:40 | NUR ---
Comfort care visit made. No visitors at bedside currently. Pt is grimacing with furrowed brow. Resp with some apnic gaps noted, otherwise unlabored. RR 10-12/min. Reviewed assessment with pt's RN, who plans to medicate for nonverbal indicators of pain noted. Talavera cath and wound vac intact and draining. Pt did not wake to voice or touch during my visit.
--- NOTE | 2021-07-02 10:48 | NUR ---
MEDICATED FOR FACIAL GRIMACING RATED "5" ON FACES SCALE. RESPIRATIONS EVEN AND UNLABORED. NO MOANING, SECRETIONS, GURGLING NOTED. ORAL CARE GIVEN PER CURATOR OF COLLECTIONS. GRIFFITHS AND WOUND VAC INTACT. LYING SUPINE. PATIENT RESISTENT TO OPENING MOUTH FOR MEDICATIONS AND CLINICHED TEETH CLOSED BUT MEDICATION WAS ABLE TO BE ADMINISTERED IN THE SMALL GAP BETWEEN HER TEETH AND SHE WAS NOTED TO SWALLOW SOME WHILE MED ADMINISTERED. WILL MONITOR.
--- NOTE | 2021-07-02 10:51 | NUR ---
RESTING QUIETLY WITH EYES CLOSED. RESPIRATIONS EVEN AND UNLABORED. UNABLE TO BE AROUSED. NO GRIMACING, MOANING, GIRGLING OR SECRETIONS NOTED. WILL MONITOR.
--- NOTE | 2021-07-02 11:45 | NUR ---
RESTING WITH EYES CLOSED. NO NONVERBAL INDICATORS OF PAIN NOTED. GRANDAUGHTER AT BEDSIDE. WILL MONITOR.
--- NOTE | 2021-07-02 12:22 | NUR ---
RESTING QUIETLY WITH EYES CLOSED. APPROX 150CC URINE NOTED IN GRIFFITHS BAG. NO GRUNTING, MOANING, GRIMACING, SECRETIONS OR GURGLING NOTED. WILL MONITOR.
--- NOTE | 2021-07-02 13:58 | NUR ---
ATTENDS CHANGED AFTER PATIENT VOIDED. MAGALYS CARE GIVEN. TOLERATED WELL.
--- NOTE | 2021-07-02 16:59 | NUR ---
RESTING QUIETLY WITH EYES CLOSED. RESPIRATIONS EVEN AND UNLABORED, OCCASIONAL APNEA NOTED. NO GRIMACING, MOANING, GURGLING OR SECRETIONS NOTED. WILL MONITOR.
--- NOTE | 2021-07-02 17:13 | NUR ---
PATIENT VISITING WITH HER SON A LARGE PART OF THE AFTERNOON. PATIENT HAS BEEN PLEASANT TODAY, ONLY GETTING AGITATED WHEN THE ATTENDS NEEDED TO BE CHANGED EARLIER. STILL REFUSED MEDS, EVEN PRN TYLENOL FOR HER C/O NECK PAIN. WILL MONITOR.
--- NOTE | 2021-07-02 17:15 | NUR ---
THE RN/CAMPUS MONITOR SHIFT SUMMARY 07/02/2021 AT 1713 WAS ON THE WRONG PATIENT.
--- NOTE | 2021-07-02 17:16 | NUR ---
RESTED QUIETLY ALL DAY LONG. MEDICATED ONCE FOR PAIN DUE TO SLIGHT FACIAL GRIMACING. RESPIATIONS EVEN AND UNLABORED. SHORT PERIODS OF APNEA NOTED. GRIFFITHS INTACT WITH APPROX 250 CC URINE OUTPUT THIS SHIFT. WOUND VAC INTACT. GRANDDAUGHTER VISITED EARLIER TODAY. YOHANNES MATOS [phone] STOPPED BY THIS AFTERNOON STATING SHE WAS FROM A [facility] HOME THAT PATIENT WOULD BE DISCHARGED TO WITH HOSPICE. PINION AND WHEEL TRUER PROVIDED HER WITH THE PHONE NUMBERS FOR THE PATIENT'S CHILDREN. NO IV PRESENT. ORAL CARE DONE PERIODICALLY THROUGHOUT THE SHIFT. PATIENT DIDN'T CONSUME ANY PO FLUIDS TODAY. SHE WASN'T AROUSABLE WHEN ATTEMPTS WERE MADE TO OFFER HYDRATION. NO GURGLING, SECRETIONS, GRIMACING, MOANING OR SX OF ANXIETY NOTED AT THIS TIME. WILL MONITOR. WILL MONITOR.
--- NOTE | 2021-07-02 18:34 | NUR ---
@ 1800, PATIENT HAD A FRIEND VISITING HOLDING HER HAND AND HER EYES WERE OPEN. WAS ABLE TO GIVE HER APPROX 30 CC WATER VIA DROPPING IT INTO HER MOUTH WITH A STRAW. SWALLOWING NOTED. UNABLE TO VERBALIZE IF SHE NEEDED PAIN MEDICATION BUT NO GRIMACING, MOANING, GURGLING OR SECRETIONS WERE NOTED. THIS IS THE ONLY TIME SHE HAD HER EYES OPEN TODAY DURING ROUNDS. WILL MONITOR.
--- NOTE | 2021-07-02 21:00 | NUR ---
PATIENT REMAINS ON COMFORT CARE. PT DOES OPEN EYES TO TOUCH. REPOSITIONED TO RIGHT SIDE. WOUND VAC INTACT. GRIFFITHS WITH DARKER YELLOW URINE. ORAL CARE DONE. PT DOES GRIMACE WITH TURNING BUT THEN LOOKS COMFORTABLE AFTERWARD. CALL LIGHT IN REACH. WILL CONTINUE TO MONITOR.
--- NOTE | 2021-07-03 01:10 | NUR ---
PATIENT HAS BEEN RESTING WELL, FREQ ORAL CARE. SLIGHT POSITION CHANGES. WOUND VAC CHECKED, REMAINS INTACT. PAINFUL WITH TURNING, MEDICATED WITH ROXICODONE 20 MG. PT TAKES SM FLUIDS VIA STRAW TIP. CATH CARE DONE.
--- NOTE | 2021-07-03 06:28 | NUR ---
Patient continues to rest. No changes for earlier shift charting.
--- NOTE | 2021-07-03 09:20 | NUR ---
@ 0739, RESTING QUIETLY WITH EYES CLOSED. RESPIRATIONS EVEN AND UNLABORED, SOME APNEA FOR SEVERAL SECONDS NOTED INTERMITTENTLY. SKIN WARM AND DRY. NO GRIMACING, MOANING, SECRETIONS, GURGLING NOTED. GRIFFITHS WITH APPROX 25 CC URINE NOTED. WOUND VAC INTACT AT 80 MM HG. WILL MONITOR.
--- NOTE | 2021-07-03 09:39 | NUR ---
RESTING QUIETLY WITH EYES CLOSED. NO GRIMACING, GROANING, GURGLING OR SECRETIONS NOTED. WILL MONITOR.
--- NOTE | 2021-07-03 10:03 | NUR ---
Comfort care visit made - Case conference with CLIN NURSE at bedside, RN and CM. Adult FH provider had been in this weekend and left name and number on the board for family and staff. Shelia Stephane, had been contacted by CM last week also. Shelia stated to CLIN NURSE that they had a room available and that they would like to discuss wound vac and care with CM when available. Shelia was given pt's children's phone number to call also. All of above passed on to CM, Anirudh, who has been working with pt/family. Pt sound asleep and she did not wake to voice or touch or our conversation at bedside. I did not note any nonverbal indicators of pain at this time. She looks very comfortable. Resp even and unlabored. She has had minimal to no PO intake in last couple days per CLIN NURSE. RN to d/c food trays and offer food if pt awake, alert and accepting of PO intake. Talavera cath and wound vac remain in place.
--- NOTE | 2021-07-03 12:05 | NUR ---
NOTED WITH EYES OPEN AND A GRIMACE ON HER FACE. UNABLE TO VERBALLY RESPOND. MEDICATED PER E-MAR. APPROX 120 CC PO WATER GIVEN BY STRAW DROPPED INTO PATIENT'S MOUTH. NO RESPIRATORY DISTRESS, MOANING, GURGLING, SECRETIONS OR ANXIETY NOTED. ANALYTICS ARCHITECT, MARILYN STOPPED IN AND SAID THEY ARE CLOSE TO HAVING PLACEMENT READY FOR THE PATIENT. STATES SHE WILL CALL THE PATIENT'S DAUGHTER TO DISCUSS. WILL MONITOR.
--- NOTE | 2021-07-03 13:50 | NUR ---
RESTING QUIETLY WITH EYES CLOSED. RESPIRATIONS EVEN AND UNLABORED WITH SOME SEVERAL SECOND PERIOD OF APNEA INTERMITTENTLY. NO GRIMACING, MOANING, GURGLING OR SECRETIONS NOTED. DAUGHTER AT BEDSIDE. UPDATED HER ON HER MOTHER'S STATUS. SHE HAD QUESTIONS ABOUT HOW MUCH TIME SHE MAY HAVE LEFT, THAT THE PATIENT'S BOYFRIEND WILL ARRIVE ON SATURDAY. HAD A DISCUSSION ABOUT UNFINISHED BUSINESS AND HOW SOME PEOPLE'S END OF LIFE JOURNEY GOES BUT THAT IS AN UNPREDICTABLE SITUATION. VERBALIED UNDERSTANDING. STATES SHE DID SPEAK WTIH THE PERSON AT THE [facility] BUT WANTED TO SEE HER MOTHER BEFORE CALLING HER BACK WITH A DECISION.
--- NOTE | 2021-07-03 15:37 | NUR ---
PATIENT RESTING QUIETLY WITH EYES CLOSED. RESPIRATIONS EVEN AND UNLABORED WITH OCCASIONAL APNEA NOTED. NO GRIMACING, MOANING, GURGLING OR SECRETIONS NOTED. WILL MONITOR.
--- NOTE | 2021-07-03 17:34 | NUR ---
PATIENT SLEPT MOST OF THE DAY. ONLY NOTED ONCE WITH EYES OPEN AND PO WATER VIA STRAW WAS GIVEN TO HER ALONG WITH PAIN MEDICATION AT THAT TIME DUE TO GRIMACING. HER DAUGHTER AND A FRIEND VISITED TODAY. GRIFFITHS INTACT WITH APPROX 250 CC YELLOW URINE THIS SHIFT. WOUND VAC INTACT. NO RESPIRATORY DISTRESS, GRIMACING, MOANING, SECRETIONS OR GURGLING NOTED. WILL MONITOR.
--- NOTE | 2021-07-04 09:05 | NUR ---
@ 0730 PATIENT WITH EYES OPEN. NONVERBAL WHEN ASKED QUESTIONS. FACIAL GRIMACING NOTED. MEDICATED PER E-MAR. WAS ABLE TO TAKE A LITTLE WATER BY STRAW DROPPED INTO HER MOUTH. APPROX 50 CC INTAKE. TOWARD THE END OF DRINKING THIS WATER A LITTLE DIFFICULTY SWALLOWING OCCURRED SO WATER WAS STOPPED. GRIFFITHS INTACT WITH APPROX 10 CC YELLOW URINE. WOUND VAC INTACT AT 80 MM HG. ORAL CARE GIVEN. RESPIRATIONS EVEN AND UNLABORED, 10-15 SECONDS OF APNEA NOTED WITH MOST BREATHS. NO RESPIRATORY DISTRESS, GROANING, GURGLING OR SECRETIONS NOTED. WILL MONITOR.
--- NOTE | 2021-07-04 10:11 | NUR ---
FACIAL GRIMACING NOTED. MEDICATED PER E-MAR. NO GRUNTING, GURGLING, SECRETIONS NOTED. RESPIRATIONS EVEN AND UNLABORED. UNAROUSABLE. WILL MONITOR.
--- NOTE | 2021-07-04 10:34 | NUR ---
@ 0940, UPDATED BILLIE WITH PALLIATIVE CARE ON PATIENT'S STATUS.
--- NOTE | 2021-07-04 11:02 | NUR ---
Comfort care visit - Pt sleeping. Initially she was resistent to oral care but with clamping down of teeth and lips reflexively but then I was able to do a thorough cleaning of mouth with touthett sponges. She did not open eyes or indicate being wakeful at any time. Recently emptied barajas cath bag with scant yellow urine. RN reports cont. urine output and pt was able to sip small amount of fluids t/o day yesterday but having more difficulty with that this am. Pt with furrowed brow and frowning, before, during and after oral care. Reported to RN and she planned to medicate for discomfort per eMAR. Pt's skin quite warm, dry. Room temerature lowered per thermostat. RN updated me on d/c planning with family. We discussed immediate prognosis. Pt does not appear imminent but is starting to progress more in the dying process due to vastly decreased PO intake of food/fluids and disease process. I would estimate that pt may have a number of days to weeks at most prior to her demise.
--- NOTE | 2021-07-04 11:25 | NUR ---
SON WAS IN TO VISIT PATIENT. UPDATED HIM ON STATUS.
--- NOTE | 2021-07-04 11:26 | NUR ---
PATIENT IS SLEEPING. RESPIRATIONS EVEN AND UNLABORED WITH APNEA NOTED. NO GRIMACING, MOANING, SECRETIONS, GURGLING NOTED. GRIFFITHS INTACT WITH 100 CC URINE NOTED. WILL MONITOR.
--- NOTE | 2021-07-04 14:17 | NUR ---
PATIENT NOTED WITH EYES OPEN GRIMACING. RETRIEVED PAIN MEDICATION AND BY THE TIME I WAS BACK HER EYES WERE CLOSED BUT SHE BRIEFLY OPENED THEM WHILE PAIN MEDS ADMINISTERED. NO RESPIRATORY DISTRESS NOTED. NO MOANING, GURGLING, SECRETIONS NOTED. WILL MONITOR.
--- NOTE | 2021-07-04 15:50 | NUR ---
ASLEEP BUT GRIMACING NOTED. 6-7 ON FACES SCALE. MEDICATED. SEE E-MAR. RESPIRATIONS UNLABORED WITH PERIODS OF APNEA. NO MOANING, GURGLING OR SECRETIONS NOTED. GRIFFITHS AND WOUND VAC INTACT. WILL MONITOR.
--- NOTE | 2021-07-04 16:51 | NUR ---
MEDICATED SEVERAL TIMES TODAY FOR PAIN DUE TO FACIAL GRIMACING. GRIFFITHS PATENT WITH 250 CC YELLOW URINE NOTED. ATTEMPTED PO WATER THIS MORNING WHEN PATIENT HAD HER EYES OPEN BUT SWALLOWING WAS DIFFICULT AND SOME WAS DROOLED OUT OF HER MOUTH SO NO FUTHER ATTEMPTS TO DO WATER HAVE BEEN MADE THROUGHOUT THIS SHIFT. PATIENT ONLY HAD HER EYES OPEN ON 2-3 OCCASIONS FOR VERY BRIEF PERIODS ON ROUNDING. WOUND VAC INTACT. NO FOOD INTAKE FOR A FEW DAYS NOW DUE TO LOC. SON AND DAUGHTER VISITED AT DIFFERENT TIMES TODAY. PER MARILYN IN CARE MANAGEMENT, THE [facility] WAS NOT ACCEPTABLE TO THE PATIENT'S DAUGHTER FOR TRANSFER SO SHE WILL REMAIN HERE FOR HER REMAINING TIME. WILL MONITOR.
--- NOTE | 2021-07-05 06:12 | NUR ---
HEALTH CLUB ATTENDANT SUMMARY PATIENT HAD A FAIR SHIFT. WAS KEPT COMFORTABLE NO EVENT OVERNIGHT. SHE WAS GIVEN PAIN MEDICATION NEEDED. WILL CONTINUE TO MONITOR HER.
--- NOTE | 2021-07-05 16:11 | NUR ---
Pt appears to be resting comfortably at this time. No changes made to care plan at this time. She is lying in bed. Eyes closed.
--- NOTE | 2021-07-05 18:46 | NUR ---
SHIFT SUMMARY: ON COMFORT CARE. RESPONDING TO PAINFUL STIMULI ONLY. PAINFUL WITH MOVEMENT. MEDICATED PER EMAR. HAD VISIT FROM [employer], BUT WAS NOT ALERT DURING VISIT. WOUND VAC AND DRESSING REMOVED, WET TO DRY PACKING PLACED TO TAKE UP EXTRA SPACE IN WOUND BED, COVERED WITH FOAM DRESSING. DOING FREQUENT ORAL CARE. GRIFFITHS DRAINING SMALL AMOUNT OF CLOUDY, BEIGE URINE.
--- NOTE | 2021-07-06 04:51 | NUR ---
CAT SCANNER OPERATOR SUMMARY PATIENT HAD A FAIR SHIFT. SHE WAS KEPT DRY AND COMFORTABLE. NIL COMPLAINTS LODGED. STILL HAVING SOME PERIODS OF APNEA. WAS ASLEEP THE WHOLE NIGHT. WILL CONTINUE TO MONITOR.
--- NOTE | 2021-07-06 10:38 | NUR ---
PATIENT PROVIDED ORAL CARE. PATIENT REPOSITIONED. PATIENT PROVIDED SHEET FOR COMFORT. PATIENT IS RESTING.
--- NOTE | 2021-07-06 10:42 | NUR ---
PATIENT MEDICATED FOR PAIN. REPOSITIONED FOR COMFORT AND MOISTURIZED APPLIED TO LIPS AND MOUTH.
--- NOTE | 2021-07-06 13:59 | NUR ---
Assessed pt today, and she had a furrowed brow, and cried out with slight movement. She did softly reply, "Yes" when I asked if she was having pain, but she didn't answer any further questions of where the pain is, or if she is thirsty, etc. Ynes did not receive pain medication during the night last night, and today has required 10mg Oxycodone around every 2 hours. Discussed increasing the dose with the goal of pain medication being needed every 4 hours instead of every 2, as this assures better comfort for the pt, so long as she tolerates it. Will check in again the afternoon.
--- NOTE | 2021-07-06 16:13 | NUR ---
PATIENT MEDICATED PER EMAR FOR PAIN. PATIENT IS CURRENTLY SLEEPING COMFORTABLY.
--- NOTE | 2021-07-06 16:16 | NUR ---
PATIENT RESTING COMFORTABLY. REPOSITIONED FOR COMFORT. ORAL CARE DONE WELL.
--- NOTE | 2021-07-06 18:38 | NUR ---
PATIENT MEDICATED FOR PAIN AND DYSPNEA. PATIENT WAS READJUSTED FOR COMFORT.
--- NOTE | 2021-07-06 22:10 | NUR ---
Received patient resting confortably, no distress noted. We are monitoring patient closely.
--- NOTE | 2021-07-07 00:06 | NUR ---
No complaint or disconfort noted. Patient resting.
--- NOTE | 2021-07-07 04:11 | NUR ---
Patient seems confortable at this time. Medicated for confort per eMAR. We will continue with monitoring patient.
--- NOTE | 2021-07-07 10:20 | NUR ---
PATIENT EXPERIENCING MORE AIR HUNGER THIS AM. PATIENT MEDICATED PER EMAR. REPOSITONED FOR COMFORT. WOUND CARE PROVIDED FOR PATIENT. PARTNER AT BEDSIDE.
--- NOTE | 2021-07-07 11:42 | NUR ---
Ynes appears to be transitioning today. She is no longer responsive to voice or touch. She continues receiving medication for pain and air hunger as needed. She had a visit from her significant other this morning to say his goodbyes as he [place] in [place]. I notified the patient's children, they plan to visit pt later today. No changes needed to plan of care at this time.
--- NOTE | 2021-07-07 14:40 | NUR ---
PATIENT REPOSITIONED. ORAL CARE DONE FOR PATIENT. CATHETER CARE DONE WELL.
--- NOTE | 2021-07-07 16:58 | NUR ---
PATIENT HAD A BED BATH. REPOSITIONED FOR COMFORT. ORAL CARE AND FULL LINEN CHANGE.
--- NOTE | 2021-07-07 20:48 | NUR ---
Received patient calm with no complaint. She is resting confortably. Will continue to monitor.
== END 2021-07-07 22:45 | DRG 673 ==
LOC: ER 13:43 → MEDS 17:27 → ERHOLD 17:27 → SURS 17:27 → MEDS 05-16 17:24
PROVIDERS: Emergency Medicine; Hospitalist; Internal Medicine; Nurse Practitioner Acute Care; Student in an Organized Health Care Education/Training Program; Surgery; ADMIT Internal Medicine
PROC: 0JB70ZZ Excision of Back Subcutaneous Tissue and Fascia, Open Approach (ICD-10-PCS; principal; 2021-05-24 13:15)
PROC: 0JB70ZZ Excision of Back Subcutaneous Tissue and Fascia, Open Approach (ICD-10-PCS; 2021-06-06)
DX: N17.9 Acute kidney failure, unspecified (principal); L89.154 Pressure ulcer of sacral region, stage 4; G93.41 Metabolic encephalopathy; A41.9 Sepsis, unspecified organism; A04.72 Enterocolitis due to Clostridium difficile, not specified as recurrent; E87.1 Hypo-osmolality and hyponatremia; Z66 Do not resuscitate; Z51.5 Encounter for palliative care; N39.0 Urinary tract infection, site not specified; Z20.822 Contact with and (suspected) exposure to COVID-19; E87.6 Hypokalemia; E83.42 Hypomagnesemia; E86.9 Volume depletion, unspecified; E83.39 Other disorders of phosphorus metabolism; E86.0 Dehydration; D63.8 Anemia in other chronic diseases classified elsewhere; E87.8 Other disorders of electrolyte and fluid balance, not elsewhere classified; Z74.01 Bed confinement status; G20 Parkinson's disease; K14.8 Other diseases of tongue; M06.9 Rheumatoid arthritis, unspecified; F02.80 Dementia in other diseases classified elsewhere, unspecified severity, without behavioral disturbance, psychotic disturbance, mood disturbance, and anxiety; E11.9 Type 2 diabetes mellitus without complications; I10 Essential (primary) hypertension; Z85.3 Personal history of malignant neoplasm of breast; Z60.2 Problems related to living alone; Z98.890 Other specified postprocedural states; Z79.899 Other long term (current) drug therapy; Z90.13 Acquired absence of bilateral breasts and nipples; Z79.84 Long term (current) use of oral hypoglycemic drugs; Z88.5 Allergy status to narcotic agent; Z88.1 Allergy status to other antibiotic agents; Z86.73 Personal history of transient ischemic attack (TIA), and cerebral infarction without residual deficits
CPT/HCPCS: 0097U; 0202U; 0241U; 36415; 51701; 70450; 71045; 72220; 74177; 76770; 80048; 80053; 80069; 81001; 82550; 82607; 82728; 82746; 82947; 83036; 83540; 83550; 83735; 84100; 84134; 84443; 85025; 85027; 85651; 86140; 86592; 87040; 87070; 87075; 87076; 87077; 87086; 87185; 87186; 87205; 87324; 93005; 93010; 93306; 94760; 97110; 97112; 97116; 97129; 97130; 97162; 97166; 97530; 97535; 99285-25; A9270; J1100; J1644; J1650; J1885; J1956; J2185; J2250; J2370; J2405; J2543; J2704; J2710; J3010; J3370; J3475; J7030; J7040; J7042; J7050; J7060; J7120; J7512; Q9967